=== PATIENT | male | born 1990 | race Caucasian/White ===

== ENCOUNTER 2020-02-29 05:44 | Outpatient (RCR) | payer BC ==
[~2020-02-29] VITALS: Ht 182.9 cm; Wt 122.7 kg
== END 2020-02-29 11:42 | disposition home or self-care (01) ==
LOC: PREOP 05:44
PROVIDERS: ATTEND Otolaryngology Otolaryngology/Facial Plastic Surgery
DX: Z01.818 Encounter for other preprocedural examination (principal)

== ENCOUNTER 2020-03-03 06:27 | Day surgery (SDC) | payer BC ==
[~2020-03-03] VITALS: Ht 182.9 cm; Wt 122.7 kg
[2020-03-03] VITALS (11 sets, daily range): BP systolic 122–149; BP diastolic 76–106
--- OUTSIDE RECORDS SUMMARY | 2020-03-03 06:31 | XMS REPORT | CCD ---
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 Name Role Phone PP Unavailable CCM Unavailable Summary Purpose Interface Exchange Insurance Providers Payer name Policy type / Coverage type Covered constitution party ID Effective Begin Date Effective End Date Blue Cross Blue Shield Blue Cross/Blue Shield [id number] Unknown Family History Family History data not found Social History Social History Element Codes Description Effective Dates Marital status Unknown 03/07/2016 Employment Unknown Currently employed 03/07/[address]: 182643136 Never smoker 03/07/[address]: 512436 Currently drinks alc ohol Socially 03/07/2016 Allergies, Adverse Reactions, Alerts Substance Reaction Codes Entered Date Inactivated Date Status * NO KNOWN FOOD ALLERGIES Unknown 03/07/2016 No Inactiv e Date Active * NO KNOWN DRUG ALLERGIES Unknown 03/07/2016 No Inactiv e Date Active _ Unknown 03/07/2016 No Inactive Date Active Problems Condition Codes Effective Dates Condition Status Acute suppurative otitis media of right ear ICD-9: 382 .00 ICD-10: H66.001 06/22/2019 Active FLU VACCINE ICD-9: V04.81 ICD-10: Z23 05/12/2019 Active Otitis externa in other diseases classified elsewhere, right ear ICD-9: 380.13 ICD-10: H62.41 03/31/2019 Active Unspecified nonsuppurative otitis media, right ear ICD -9: 382.9 ICD-10: H65.91 03/31/2019 Active Pain in right wrist ICD-9: 719.43 ICD-10: M25.531 08/07/2018 Active Essential (primary) hypertension ICD-9: 401.9 ICD-10: I10 10/11/2016 Active Acute tonsillitis, unspecified ICD-9: 463 ICD-10: J03.90 09/24/2016 Active Ingrowing nail ICD-9: 703.0 ICD-10: L60.0 05/30/2016 Active Elevated blood-pressure reading, without diagnosis of hypertension ICD-9: 796.2 ICD-10: R03.0 04/09/2016 Active Encounter for general adult medical examination with a bnormal findings ICD-9: V70.0 ICD-10: Z00.01 04/09/2016 Active Abnormal weight gain ICD-9: 783.1 ICD-10: R63.5 03/06/2016 Active Encounter for immunization ICD-9: V05.9 ICD-10: Z23 03/06/2016 Active Snoring ICD-9: 786.09 ICD-10: R06.83 03/06/2016 Active VACCINE FOR TDAP ICD-9: V06.1 ICD-10: Z23 03/06/2016 Active Medications Medication Codes Instructions Start Date Stop Date Status Fill Instructions Xiidra 5 % eye drops in a dropperette RxNorm: 4177770 1 Drop(s) ophthalmic (eye) two times a day 07/31/2019 08/30/2019 Active Medrol (Chris) 4 mg tablets in a dose pack RxNorm: 863055 Tablet(s) Oral as directed 06/29/2019 06/29/2019 Inactive Medrol (Chris) 4 mg tablets in a dose pack RxNorm: 792845 Tablet(s) Oral as directed 06/29/2019 06/28/2019 Inactive cefdinir 300 mg capsule RxNorm: 631277 2 Capsule(s) Oral QD 019 07/02/2019 Inactive Amoxil 500 mg tablet RxNorm: 736935 2 Tablet(s) PO BID 04/03/201912/2018 Inactive Flonase Allergy Relief 50 mcg/actuation nasal spray,suspensi on RxNorm: 2104921 2 [place] NASAL QHS 03/31/2019 No Stop Date Active prednisone 20 mg tablet RxNorm: 552653 1 Tablet(s) PO BID 03/31/2019 04/04/2019 Inactive wslidden-vgqcijjyt-aeddjbhqt 3.5 mg/mL-10,000 unit/mL- 1 % ear solution RxNorm: 256545 4 Drop(s) otic (ear) TID for 1 week 03/31/2019 06/21/2019 Inact best Celebrex 200 mg capsule RxNorm: 120706 1 Capsule(s) PO BID for pain 08/20/2018 09/18/2018 Inactive prednisone 20 mg tablet RxNorm: 448279 1 Tablet(s) PO BID 08/20/2018 08/26/2018 Inactive Keflex 500 mg capsule RxNorm: 558204 1 Capsule(s) PO QID 05/31/2016 1 08/09/2015 Inactive lisinopril 5 mg tablet RxNorm: 050024 1 Tablet(s) PO QD 04/26/2016 Inactive lisinopril 5 mg tablet RxNorm: 819038 1 Tablet(s) PO QD 03/29/2016 Inactive lisinopril 5 mg tablet RxNorm: 331203 1 Tablet(s) PO QD 03/29/2016 Inactive Multivitamin & Mineral Formula tablet RxNorm: 1 Tablet(s) PO Q D No Start Date 10/10/2016 Inactive Medication Administered No Medication Administered data Immunizations Vaccine Codes Date Status Influenza CVX: 141 05/12/2019 Complete Influenza CVX: 141 05/12/2019 Complete Tetanus, Diptheria, Pertussis CVX: 115 03/07/2016 Co mplete Results Observation Observation Code Item Item Code Result Date S [facility] Location GFR CALC 7641511 GFR Non Afr Amr >60 mL/min 04/10/2016 Un known GFR CALC 3753081 GFR Afr Amr >60 mL/min 04/10/2016 Unknow n THYROID STIMULATING HORMONE 74763 TSH 2.104 uIU/mL 04/10/2016 Unknown COMPLETE BLOOD COUNT 8087994 WBC 7.3 10e9/L 04/10/20 16 Unknown COMPLETE BLOOD COUNT 7598587 RBC 4.75 10e12/L 2015 Unknown COMPLETE BLOOD COUNT 2235420 HEMOGLOBIN 14.0 g/dL 04/10/20 16 Unknown COMPLETE BLOOD COUNT 5032586 HEMATOCRIT 41.2 % 04/10/20 16 Unknown COMPLETE BLOOD COUNT 7903843 MCV 86.7 fL 6 Unknown COMPLETE BLOOD COUNT 0963490 MCH 29.5 pg 6 Unknown COMPLETE BLOOD COUNT 0044775 MCHC 34.0 g/dL 6 Unknown COMPLETE BLOOD COUNT 6374101 PLATELET COUNT 269 10e9/L 01/2016 Unknown COMPLETE BLOOD COUNT 6692492 Mean Plt Volume 10.5 fL 01/2016 Unknown COMPLETE BLOOD COUNT 0955788 Neut Auto 60.2 % 6 Unknown COMPLETE BLOOD COUNT 7282531 Lymph Auto 26.5 % 04/10/20 16 Unknown COMPLETE BLOOD COUNT 0647472 [place] Auto 9.0 % 6 Unknown COMPLETE BLOOD COUNT 5346280 RDW 13.6 % 6 Unknown COMPLETE BLOOD COUNT 4483214 Eos Auto 4.2 % 6 Unknown COMPLETE BLOOD COUNT 4526011 Baso Auto 0.1 % 6 Unknown COMPLETE BLOOD COUNT 1023213 Neutrophil Abs 4.39 10e9/L Unknown COMPLETE BLOOD COUNT 3203305 Lymphocyte Abs 1.93 10e9/L Unknown COMPLETE BLOOD COUNT [id number] Monocyte Abs 0.66 10e9/L 01/2016 Unknown COMPLETE BLOOD COUNT 7362562 Eosinophil Abs 0.31 10e9/L Unknown COMPLETE BLOOD COUNT 7096443 RDW-SD 41.7 fL 6 Unknown COMPLETE BLOOD COUNT [id number] Basophil Abs 0.01 10e9/L 01/2016 Unknown FREE T4 74685 T4 Free 1.09 ng/dL 04/10/2016 Unknown COMPREHENSIVE METABOLIC 77696 AST 27 U/L 2015 Unknown COMPREHENSIVE METABOLIC 71076 ALT 45 U/L 2015 Unknown COMPREHENSIVE METABOLIC 88476 BUN 14 mg/dL 2015 Unknown COMPREHENSIVE METABOLIC 46418 ALBUMIN 4.7 g/dL 2015 Unknown COMPREHENSIVE METABOLIC 79569 CHLORIDE 103 mmol/L 04/10 Unknown COMPREHENSIVE METABOLIC 13481 Bili Total 0.6 mg/dL 04/10 Unknown COMPREHENSIVE METABOLIC 46275 ALK PHOS 38 U/L 2015 Unknown COMPREHENSIVE METABOLIC 07564 SODIUM 138 mmol/L 04/10 Unknown COMPREHENSIVE METABOLIC 79138 CREATININE 0.95 mg/dL 01/2016 Unknown COMPREHENSIVE METABOLIC 77131 CALCIUM 9.4 mg/dL 2015 Unknown COMPREHENSIVE METABOLIC 72982 POTASSIUM 4.5 mmol/L 04/10 Unknown COMPREHENSIVE METABOLIC 35061 Total Protein 6.9 g/dL Unknown COMPREHENSIVE METABOLIC 99720 Glucose 84 mg/dL 2015 Unknown COMPREHENSIVE METABOLIC 57428 Bicarbonate 26 mmol/L 01/2016 Unknown COMPREHENSIVE METABOLIC 78936 AGAP 9 mmol/L 2015 Unknown [facility] 92122 Cholesterol 122 mg/dL 04/10/2016 Unkno wn LIPID GROUP 28422 Triglyceride 132 mg/dL 04/10/2016 Unkn own LIPID GROUP 06083 HDL CHOLESTEROL 40 mg/dL 04/10/2016 U nknown LIPID GROUP 69750 Chol/HDL Ratio 3.05 ratio 04/10/2016 U nknown LIPID GROUP 86234 NON-HDL Chol 82 mg/dL 04/10/2016 Unkn own LIPID GROUP 27390 LDL Cholesterol 56 mg/dL 04/10/2016 U nknown Procedures Procedure Codes Date THER/PROPH/DIAG INJ SC/IM CPT-4: 01815 07/31/2019 TRIAMCINOLONE ACET INJ NOS CPT-4: J3301 07/31/2019 DEXAMETHASONE SODIUM PHOS CPT-4: J1100 07/31/2019 CEFTRIAXONE SODIUM INJECTION CPT-4: J0696 07/31/2019 THER/PROPH/DIAG INJ SC/IM CPT-4: 68623 07/31/2019 IIV4 VACC NO PRSV 6 MTHS TO 64 YRS+ IM CPT-4: 46828 05/12/2019 IMMUNIZATION ADMIN CPT-4: 77996 05/12/2019 IIV4 VACC NO PRSV 6 MTHS TO 64 YRS+ IM CPT-4: 84321 05/12/2019 STREP A ASSAY W/OPTIC CPT-4: 38215 09/24/2016 ROUTINE VENIPUNCTURE CPT-4: 73969 04/10/2016 ASSAY OF FREE THYROXINE CPT-4: 18818 04/10/2016 ASSAY THYROID STIM HORMONE CPT-4: 68740 04/10/2016 COMPREHEN METABOLIC PANEL CPT-4: 54846 04/10/2016 COMPLETE CBC W/AUTO DIFF WBC CPT-4: 93167 04/10/2016 LIPID PANEL CPT-4: 94387 04/10/2016 TDAP VACCINE 7 YRS/> IM CPT-4: 44953 03/07/2016 IMMUNIZATION ADMIN CPT-4: 76819 03/07/2016 Vital Signs Date Vital 07/31/2019 Blood Pressure 1: 128/90 Code: 8480-6 BMI: 37.4 Code: 95689-0 Heart Rate 1: 76 bpm Height: 6' Respiratory Rate: 20 bpm SpO2: 98% Tempera ture: 36.8 (C) / 98.3 (F) Weight: 276 lbs 06/22/2019 Blood Pressure 1: 122/88 Code: 8480-6 Heart Rate 1: 83 bpm SpO2: 96% Temperature: 36.6 (C) / 97.9 (F) Weight: 280 lbs 03/31/2019 Blood Pressure 1: 124 Code: 8480-6 Heart Rate 1: 72 bpm Respiratory Rate: 20 bpm SpO2: 97% Temperature: 36.8 (C) / 98.2 (F) We ight: 270 lbs 08/20/2018 Blood Pressure 1: 128/ Code: 8480-6 Heart Rate 1: 68 bpm Height: 6' Respiratory Rate: 20 bpm SpO2: 98% Temperature: 36 .9 (C) / 98.4 (F) 08/07/2018 Blood Pressure 1: 126 Code: 8480-6 BMI: 36.2 Code: 34793-2 Heart Rate 1: 72 bpm Height: 6' Respiratory Rate: 20 bpm Temperature: 36 .7 (C) / 98.0 (F) Weight: 267 lbs 10/11/2016 Blood Pressure 1: 116 Code: 8480-6 Heart Rate 1: 72 bpm Respiratory Rate: 20 bpm Temperature: 36.7 (C) / 98.1 (F) Weight: 244 lbs 09/24/2016 Blood Pressure 1: 12478 Code: 8480-6 BMI: 33.9 Code: 47520-3 Heart Rate 1: 84 bpm Height: 6' Respiratory Rate: 18 bpm SpO2: 96% Tempera ture: 36.4 (C) / 97.6 (F) Weight: 250 lbs 05/31/2016 Blood Pressure 1: 126/82 Code: 8480-6 BMI: 37.7 Code: 58214-5 Heart Rate 1: 84 bpm Height: 5'12" Respiratory Rate: 20 bpm Temperature: 36 .8 (C) / 98.2 (F) Weight: 274 lbs 04/26/2016 Blood Pressure 1: 126/82 Code: 8480-6 BMI: 37.7 Code: 94766-4 Heart Rate 1: 68 bpm Height: 5'12" Respiratory Rate: 20 bpm Temperature: 36 .6 (C) / 97.8 (F) Weight: 274 lbs 03/27/2016 Blood Pressure 1: 136/94 Code: 8480-6 He art Rate 1: 84 bpm 03/07/2016 Blood Pressure 1: 124/100 Code: 8480-6 BMI: 38.2 Code: 08007-2 Heart Rate 1: 84 bpm Height: 5'12" Respiratory Rate: 18 bpm SpO2: 97% Tempera ture: 35.8 (C) / 96.5 (F) Weight: 278 lbs Functional Status No Functional Status data Reason For Visit Reason For Visit Effective Dates Notes otalgia 07/31/2019 otalgia 06/22/2019 injection(s) 05/12/2019 otalgia 03/31/2019 follow up 08/20/2018 wrist pain 08/07/2018 follow up 10/11/2016 sore throat 09/24/2016 ingrown toenail 05/31/2016 follow up 04/26/2016 lab draw 04/10/2016 blood pressure check 03/27/2016 ~generic 03/07/2016 Establishing care- P atient is having Encounters Encounter Performer Location Codes Date ([id number]) OFFICE/OUTPATIENT VISIT EST Diagnosis: Acute suppurative otitis media of right ear[ICD10: H66.001] Laura [facility] CPT-4: 13541 07/31/2019 ([id number]) OFFICE/OUTPATIENT VISIT EST Diagnosis: Acute suppurative otitis media of right ear[ICD10: H66.001] Laura KUMARER [employer] CPT-4: 88703 06/22/2019 ([id number]) NURSE/OUTPATIENT VISIT EST Diagnosis: FLU VACCINE[ICD10: Z23] Roxi PETERSLINE [employer] YardDmitriy WELLSND ER [employer] CPT-4: 26026 05/12/2019 ([id number]) OFFICE/OUTPATIENT VISIT EST Diagnosis: Unspecified nonsuppurative otitis media, right ear[ICD10: H65.91] Diagnosis: Otitis externa in other diseases classified elsewhere, right ear[ICD10: H62.41] Roxi PETERSLINE BeckieDmitriy RUSSELLNDER [employer] CPT-4: 17962 03/31/2019 ([id number]) OFFICE/OUTPATIENT VISIT EST Diagnosis: Pain in right wrist[ICD10: M25.531] Roxi MEJIA DO [facility] CPT-4: 43021 08/20/2018 ([id number]) OFFICE/OUTPATIENT VISIT EST Diagnosis: Pain in right wrist[ICD10: M25.531] Roxi MEJIA DO [facility] CPT-4: 00791 08/07/2018 ([id number]) OFFICE/OUTPATIENT VISIT EST Diagnosis: Essential (primary) hypertension[ICD10: I10] Roxi MEJIA DO [facility] CPT-4: 12937 10/11/2016 ([id number]) OFFICE/OUTPATIENT VISIT EST Diagnosis: Acute tonsillitis, unspecified[ICD10: J03.90] Jade MEJIA DO [facility] CPT-4: 12410 09/24/2016 OFFICE/OUTPATIENT VISIT EST Diagnosis: Ingrowing nail[ICD10: L60.0] Roxi MEJIA DO [facility] CPT-4: 23803 05/31/2016 ([id number]) OFFICE/OUTPATIENT VISIT EST Diagnosis: Essential (primary) hypertension[ICD10: I10] Roxi MEJIA DO [facility] CPT-4: 76637 04/26/2016 ([id number]) OFFICE/OUTPATIENT VISIT EST Diagnosis: Encounter for general adult medical examination with abnormal findings[ICD10: Z00.01] Diagnosis: Elevated blood-pressure reading, without diagnosis of hypertension[ICD10: R03.0] Roxi MEJIA DO [facility] CPT- 4: 86033 04/10/2016 ([id number]) PREV VISIT NEW AGE 18-39 Diagnosis: Encounter for general adult medical examination with abnormal findings[ICD10: Z00.01] Diagnosis: Encounter for immunization[ICD10: Z23] Diagnosis: Elevated blood-pressure reading, without diagnosis of hypertension[ICD10: R03.0] Diagnosis: Snoring[ICD10: R06.83] Diagnosis: Abnormal weight gain[ICD10: R63.5] Diagnosis: VACCINE FOR TDAP[ICD10: Z23] Jade MEJIA DO [facility] CPT-4: 11725 03/07/2016 Plan of Care Planned Activity Notes Codes Status Date Visit Diagnosis Plan: Acute suppurative otitis media o f right ear Discussion: due to continued pain and symptoms, kenalog/dexa and rocephin given in office. instructed to call office next week if no improvement. push fluids. ICD-9 : 382.00 ICD-10 : H66.001 07/31/2019 Visit Diagnosis Plan: Acute suppurative otitis media o f right ear Discussion: cefdinir prescribed to take as directed. tylenol/ibuprofen prn pain or fever. continue with flonase daily. rtc 2 weeks for recheck of ear since this is second time. if no improvement in 2 weeks, may need injection or referral to ENT due to recurrent infection. ICD-9 : 382.00 ICD-10 : H66.001 06/22/2019 Appointment: Laura Miller [address] [place] [address] ACUTE ILLNESS 06/22/2019 Patient Education: cefdinir- [employer] Coupon [id number] https://www.[employer] Response/samplemd/resources/getResource/61/87g9i09q-44f2-180f-04 Completed 06/22/2019 Appointment: Roxi Mejia WPtel: [address] [place] [address] Immunizations 05/12/2019 Visit Plan: Supportive care. Rest, Fluid s, Tylenol/Motrin prn fever or bodyaches. Notify if worsening symptoms. 03/31/2019 Visit Diagnosis Plan: Otitis externa in other diseases classified elsewhere, right ear Discussion: Cortisporin otic drops ICD-9 : 380.13 ICD-10 : H62.41 03/31/2019 Visit Diagnosis Plan: Unspecified nonsuppurative otiti s media, right ear Discussion: Prednisone Flonase ICD-9 : 382.9 ICD-10 : H65.91 03/31/2019 Visit NOS Plan: Plan Notes: Supportive care. Rest, Fluids... 03/31/2019 Appointment: Roxi Mejia WPtel: [address] [place] [address] ACUTE ILLNESS 03/31/2019 Patient Education: prednisone- [employer] Coupon [phone] https://www.Yola.Get[employer] InfoServices/samplemd/resources/getResource/61/5177iy65-27m9-54k1-3f Completed 03/31/2019 Patient Education: ivoldclz-gqycnskoy-WB- [employer] C oupon [id number] https://www.[employer]/sampleTangent Data Services/resources/getResource/61/g5gc30n2-29eb-653v-2x Completed 03/31/2019 Visit Diagnosis Plan: Pain in right wrist Discussion: See ortho for updated x- ray/evaluation Prednisone 20mg po BID for 1 week then Celebrex 200mg po BID ICD-9 : 719.43 ICD-10 : M25.531 08/20/2018 Appointment: Roxi Mejia WPtel: [address] [place], [place] [phone] FOLLOW UP 08/20/2018 Patient Education: prednisone- [employer] Coupon [id number] https://www.[employer] Response/Yola/resources/getResource/61/pv35c709-b7x4-6p6d-fx Completed 08/20/2018 Care Plan: Referral Order SNOMED-CT : 30 [id number] Pending 08/20/2018 Visit Diagnosis Plan: Pain in right wrist Discussion: Wrist brace Aleve BID Call in 2 weeks If pain persists then will return to hand surgeon and will need updated imaging ICD-9 : 719.43 ICD-10 : M25.531 08/07/2018 Appointment: Roxi Mejia WPtel: [address] [place], [place] [id number] ACUTE ILLNESS 08/07/2018 Visit Diagnosis Plan: Essential (primary) hypertension Discussion: Stop lisinopril Continue lifestyle change BP and Pulse check in 1month ICD-9 : 401.9 ICD-10 : I10 10/11/2016 Appointment: Roxi Mejia WPtel: [address] [place], [place] [phone] 10/10 confirmed`sl FOLLOW UP 10/11/2016 Patient Education: Patient Medication Summary Completed 10/11/2016 Visit Diagnosis Plan: Acute tonsillitis, unspecified D iscussion: Rapid strep negative Discussed throat culture if symptoms persist or worsen - can call and get culture orders if needed Supportive care for now ICD-9 : 463 ICD-10 : J03.90 09/24/2016 Appointment: Jade Gamboa [address] ACUTE ILLNESS 09/24/2016 Patient Education: Patient Medication Summary Completed 09/24/2016 Visit Plan: Continue epsom salt soaks Ad d Keflex Pull edge of nailbed up as grows out If persists will need partial toenail removal 05/31/2016 Appointment: Roxi Mejia WPtel: [address] [place] [address] 05/30 lm ~sl ACUTE ILLNESS 05/31/2016 Patient Education: Patient Medication Summary Completed 05/31/2016 Visit Plan: Lab from first of month disc ussed Continue lisinopril at 5mg daily 04/26/2016 Appointment: Roxi Mejia WPtel: [address] [place] [address] [phone] confirmed-sp FOLLOW UP 04/26/2016 Patient Education: Patient Medication Summary Completed 04/26/2016 Patient Education: [facility] - Saving [employer] - Lisinopril - 18-64 - Dynamic Portal ID Completed 04/26/2016 Appointment: Roxi Mejia WPtel: [address] [place], [place] [phone] US LAB 04/10/2016 Patient Education: Patient Medication Summary Completed 04/10/2016 Appointment: Roxi Mejia WPtel: [address] [place] [address] BP CHECK 03/27/2016 Patient Education: Patient Medication Summary Completed 03/27/2016 Visit Plan: Tdap given Rechecked BP and still high 134/104 Has a cuff at home - keep daily log x 2 weeks, return for nurse BP visit with home cuff to correlate as well May need to start anti-hypertensive while he starts working on his diet, weight and exercise He is likely going to need a sleep study as well - snores, weight gain this year, fatigue, obesity and now elevated BP He will come fasting for his BP recheck with the nurse so we can update routine fasting labs - cbc, cmp, lipids, tsh, free t4 03/07/2016 Appointment: [facility] [id number] NEW PATIENT 03/07/2016 Patient Education: Patient Medication Summary Completed 03/07/2016 Referral: Kimani Medina WPtel: [facility] [address], [address] Referral Initiated Referral: Kimani Medina WPtel: [facility] [address] Referral Appointment Requested Instructions Comment . Supportive care. Rest, Fluids, Tyleno l/Motrin prn fever or bodyaches. Notify if worsening symptoms. . Continue epsom salt soaks Add Keflex Pull edge of nailbed up as grows out If persists will need partial toenail removal . Lab from first of month discussed Continue lisinopril at 5mg daily . Tdap given Rechecked BP and still high 134/104 Has a cuff at home - keep daily log x 2 weeks, return for nurse BP visit with home cuff to correlate as well May need to start anti-hypertensive while he starts working on his diet, weight and exercise He is likely going to need a sleep study as well - snores, weight gain this year, fatigue, obesity and now elevated BP He will come fasting for his BP recheck with the nurse so we can update routine fasting labs - cbc, cmp, lipids, tsh, free t4 Medical Equipment No Medical Equipment data Health Concerns Section Health Concerns data not found Goals Section Goals data not found Interventions Section Interventions data not found Health Status Evaluations/Outcomes Section Health Status Evaluations/Outcomes data not found Advance Directives No Advance Directive data
--- OUTSIDE RECORDS SUMMARY | 2020-03-03 06:31 | XMS REPORT | CCD ---
Author Author Avila Gamboa Organization [facility] Address [address] [place] [address] Phone Unavailable Care Team Providers Care Edge Sander Name Role Phone PP Unavailable CCM Unavailable Summary Purpose Interface Exchange Insurance Providers Payer name Policy type / Coverage type Covered libertarian ID Effective Begin Date Effective End Date Blue Cross Blue Shield Blue Cross/Blue Shield [id number] Unknown Family History Family History data not found Social History Social History Element Codes Description Effective Dates Marital status Unknown 03/07/2016 Employment Unknown Currently employed 03/07/[address]: 723630766 Never smoker 03/07/[address]: 007358 Currently drinks alc ohol Socially 03/07/2016 Allergies, [...] % eye drops in a dropperette RxNorm: 1773568 1 Drop(s) ophthalmic (eye) two times a day 07/31/2019 08/30/2019 Active Medrol (Chris) 4 mg tablets in a dose pack RxNorm: 725589 Tablet(s) Oral as directed 06/29/2019 06/29/2019 Inactive Medrol (Chris) 4 mg tablets in a dose pack RxNorm: 738742 Tablet(s) Oral as directed 06/29/2019 06/28/2019 Inactive cefdinir 300 mg capsule RxNorm: 551919 2 Capsule(s) Oral QD 019 07/02/2019 Inactive Amoxil 500 mg tablet RxNorm: 493750 2 Tablet(s) PO BID 04/03/201912/2018 Inactive Flonase Allergy Relief 50 mcg/actuation nasal spray,suspensi on RxNorm: 6675107 2 [place] NASAL QHS 03/31/2019 No Stop Date Active prednisone 20 mg tablet RxNorm: 286480 1 Tablet(s) PO BID 03/31/2019 04/04/2019 Inactive qsfdhrao-sdgxecmno-pvkvowrga 3.5 mg/mL-10,000 unit/mL- 1 % ear solution RxNorm: 411851 4 Drop(s) otic (ear) TID for 1 week 03/31/2019 06/21/2019 Inact best Celebrex 200 mg capsule RxNorm: 195958 1 Capsule(s) PO BID for pain 08/20/2018 09/18/2018 Inactive prednisone 20 mg tablet RxNorm: 512357 1 Tablet(s) PO BID 08/20/2018 08/26/2018 Inactive Keflex 500 mg capsule RxNorm: 557115 1 Capsule(s) PO QID 05/31/2016 1 08/09/2015 Inactive lisinopril 5 mg tablet RxNorm: 713038 1 Tablet(s) PO QD 04/26/2016 Inactive lisinopril 5 mg tablet RxNorm: 331147 1 Tablet(s) PO QD 03/29/2016 Inactive lisinopril 5 mg tablet RxNorm: 139630 1 Tablet(s) PO QD 03/29/2016 Inactive Multivitamin & Mineral Formula tablet RxNorm: 1 Tablet(s) PO Q D No Start Date 10/10/2016 Inactive Medication Administered No Medication Administered data Immunizations Vaccine Codes Date Status Influenza CVX: 141 05/12/2019 Complete Influenza CVX: 141 05/12/2019 Complete Tetanus, Diptheria, Pertussis CVX: 115 03/07/2016 Co mplete Results Observation Observation Code Item Item Code Result Date S [facility] Location GFR CALC 3656321 GFR Non Afr Amr >60 mL/min 04/10/2016 Un known GFR CALC 2757924 GFR Afr Amr >60 mL/min 04/10/2016 Unknow n THYROID STIMULATING HORMONE 84320 TSH 2.104 uIU/mL 04/10/2016 Unknown COMPLETE BLOOD COUNT 0353008 WBC 7.3 10e9/L 04/10/20 16 Unknown COMPLETE BLOOD COUNT [id number] RBC 4.75 10e12/L 2015 Unknown COMPLETE BLOOD COUNT 0469571 HEMOGLOBIN 14.0 g/dL 04/10/20 16 Unknown COMPLETE BLOOD COUNT 2092818 HEMATOCRIT 41.2 % 04/10/20 16 Unknown COMPLETE BLOOD COUNT 8746638 MCV 86.7 fL 6 Unknown COMPLETE BLOOD COUNT 6730827 MCH 29.5 pg 6 Unknown COMPLETE BLOOD COUNT 4779211 MCHC 34.0 g/dL 6 Unknown COMPLETE BLOOD COUNT 1581425 PLATELET COUNT 269 10e9/L 01/2016 Unknown COMPLETE BLOOD COUNT 1662680 Mean Plt Volume 10.5 fL 01/2016 Unknown COMPLETE BLOOD COUNT 0332160 Neut Auto 60.2 % 6 Unknown COMPLETE BLOOD COUNT [id number] Lymph Auto 26.5 % 04/10/20 16 Unknown COMPLETE BLOOD COUNT 8508591 Bennett Auto 9.0 % 6 Unknown COMPLETE BLOOD COUNT 3520872 RDW 13.6 % 6 Unknown COMPLETE BLOOD COUNT 7003233 Eos Auto 4.2 % 6 Unknown COMPLETE BLOOD COUNT 6866793 Baso Auto 0.1 % 6 Unknown COMPLETE BLOOD COUNT 7897184 Neutrophil Abs 4.39 10e9/L Unknown COMPLETE BLOOD COUNT 9960082 Lymphocyte Abs 1.93 10e9/L Unknown COMPLETE BLOOD COUNT 9352487 Monocyte Abs 0.66 10e9/L 01/2016 Unknown COMPLETE BLOOD COUNT 2545942 Eosinophil Abs 0.31 10e9/L Unknown COMPLETE BLOOD COUNT 3944530 RDW-SD 41.7 fL 6 Unknown COMPLETE BLOOD COUNT [id number] Basophil Abs 0.01 10e9/L 01/2016 Unknown FREE T4 07068 T4 Free 1.09 ng/dL 04/10/2016 Unknown COMPREHENSIVE METABOLIC 80684 AST 27 U/L 2015 Unknown COMPREHENSIVE METABOLIC 63493 ALT 45 U/L 2015 Unknown COMPREHENSIVE METABOLIC 73983 BUN 14 mg/dL 2015 Unknown COMPREHENSIVE METABOLIC 60469 ALBUMIN 4.7 g/dL 2015 Unknown COMPREHENSIVE METABOLIC 27598 CHLORIDE 103 mmol/L 04/10 Unknown COMPREHENSIVE METABOLIC 42455 Bili Total 0.6 mg/dL 04/10 Unknown COMPREHENSIVE METABOLIC 19205 ALK PHOS 38 U/L 2015 Unknown COMPREHENSIVE METABOLIC 59997 SODIUM 138 mmol/L 04/10 Unknown COMPREHENSIVE METABOLIC 69942 CREATININE 0.95 mg/dL 01/2016 Unknown COMPREHENSIVE METABOLIC 85716 CALCIUM 9.4 mg/dL 2015 Unknown COMPREHENSIVE METABOLIC 25545 POTASSIUM 4.5 mmol/L 04/10 Unknown COMPREHENSIVE METABOLIC 99964 Total Protein 6.9 g/dL Unknown COMPREHENSIVE METABOLIC 83010 Glucose 84 mg/dL 2015 Unknown COMPREHENSIVE METABOLIC 98613 Bicarbonate 26 mmol/L 01/2016 Unknown COMPREHENSIVE METABOLIC 66174 AGAP 9 mmol/L 2015 Unknown [facility] 42924 Cholesterol 122 mg/dL 04/10/2016 Unkno wn LIPID GROUP 32764 Triglyceride 132 mg/dL 04/10/2016 Unkn own L[facility] GROUP 75505 HDL CHOLESTEROL 40 mg/dL 04/10/2016 U nknown L[facility] GROUP 11436 Chol/HDL Ratio 3.05 ratio 04/10/2016 U nknown LIPID GROUP 62371 NON-HDL Chol 82 mg/dL 04/10/2016 Unkn own L[facility] GROUP 10554 LDL Cholesterol 56 mg/dL 04/10/2016 U nknown Procedures Procedure Codes Date THER/PROPH/DIAG INJ SC/IM CPT-4: 11850 07/31/2019 TRIAMCINOLONE ACET INJ NOS CPT-4: J3301 07/31/2019 DEXAMETHASONE SODIUM PHOS CPT-4: J1100 07/31/2019 CEFTRIAXONE SODIUM INJECTION CPT-4: J0696 07/31/2019 THER/PROPH/DIAG INJ SC/IM CPT-4: 66904 07/31/2019 IIV4 VACC NO PRSV 6 MTHS TO 64 YRS+ IM CPT-4: 21512 05/12/2019 IMMUNIZATION ADMIN CPT-4: 89009 05/12/2019 IIV4 VACC NO PRSV 6 MTHS TO 64 YRS+ IM CPT-4: 87036 05/12/2019 STREP A ASSAY W/OPTIC CPT-4: 28164 09/24/2016 ROUTINE VENIPUNCTURE CPT-4: 92264 04/10/2016 ASSAY OF FREE THYROXINE CPT-4: 58610 04/10/2016 ASSAY THYROID STIM HORMONE CPT-4: 93880 04/10/2016 COMPREHEN METABOLIC PANEL CPT-4: 35517 04/10/2016 COMPLETE CBC W/AUTO DIFF WBC CPT-4: 41081 04/10/2016 LIPID PANEL CPT-4: 00248 04/10/2016 TDAP VACCINE 7 YRS/> IM CPT-4: 83439 03/07/2016 IMMUNIZATION ADMIN CPT-4: 97285 03/07/2016 Vital Signs Date Vital 07/31/2019 Blood Pressure 1: 128/90 Code: 8480-6 BMI: 37.4 Code: 93774-1 Heart Rate 1: 76 bpm Height: 6' [...] 1: 126 Code: 8480-6 BMI: 36.2 Code: 53920-5 Heart Rate 1: 72 bpm Height: 6' Respiratory Rate: 20 bpm Temperature: 36 .7 (C) / 98.0 (F) Weight: 267 lbs 10/11/2016 Blood Pressure 1: 116 Code: 8480-6 Heart Rate 1: 72 bpm Respiratory Rate: 20 bpm Temperature: 36.7 (C) / 98.1 (F) Weight: 244 lbs 09/24/2016 Blood Pressure 1: 12478 Code: 8480-6 BMI: 33.9 Code: 22064-1 Heart Rate 1: 84 bpm Height: 6' Respiratory Rate: 18 bpm SpO2: 96% Tempera ture: 36.4 (C) / 97.6 (F) Weight: 250 lbs 05/31/2016 Blood Pressure 1: 126/82 Code: 8480-6 BMI: 37.7 Code: 05034-5 Heart Rate 1: 84 bpm Height: 5'12" Respiratory Rate: 20 bpm Temperature: 36 .8 (C) / 98.2 (F) Weight: 274 lbs 04/26/2016 Blood Pressure 1: 126/82 Code: 8480-6 BMI: 37.7 Code: 52216-5 Heart Rate 1: 68 bpm Height: 5'12" Respiratory Rate: 20 bpm Temperature: 36 .6 (C) / 97.8 (F) Weight: 274 lbs 03/27/2016 Blood Pressure 1: 136/94 Code: 8480-6 He art Rate 1: 84 bpm 03/07/2016 Blood Pressure 1: 124/100 Code: 8480-6 BMI: 38.2 Code: 55800-9 Heart Rate 1: 84 bpm Height: 5'12" [...] having Encounters Encounter Performer Location Codes Date (20840) OFFICE/OUTPATIENT VISIT EST Diagnosis: Acute suppurative otitis media of right ear[ICD10: H66.001] Laura KUMARdeltamethod CPT-4: 66393 07/31/2019 ([id number]) OFFICE/OUTPATIENT VISIT EST Diagnosis: Acute suppurative otitis media of right ear[ICD10: H66.001] Laura KUMARER [facility] CPT-4: 66148 06/22/2019 ([id number]) NURSE/OUTPATIENT VISIT EST Diagnosis: FLU VACCINE[ICD10: Z23] Roxi PETERSLINE Box JumpDmitriy WELLSND ER [facility] CPT-4: 71925 05/12/2019 ([id number]) OFFICE/OUTPATIENT VISIT EST Diagnosis: Unspecified nonsuppurative otitis media, right ear[ICD10: H65.91] Diagnosis: Otitis externa in other diseases classified elsewhere, right ear[ICD10: H62.41] Roxi PETERSLINE BeckieDmitriy RUSSELLNDER [facility] CPT-4: 67517 03/31/2019 ([id number]) OFFICE/OUTPATIENT VISIT EST Diagnosis: Pain in right wrist[ICD10: M25.531] Roxi MEJIA DO [facility] CPT-4: 15975 08/20/2018 ([id number]) OFFICE/OUTPATIENT VISIT EST Diagnosis: Pain in right wrist[ICD10: M25.531] Roxi MEJIA DO [facility] CPT-4: 07884 08/07/2018 ([id number]) OFFICE/OUTPATIENT VISIT EST Diagnosis: Essential (primary) hypertension[ICD10: I10] Roxi MEJIA DO [facility] CPT-4: 41432 10/11/2016 ([id number]) OFFICE/OUTPATIENT VISIT EST Diagnosis: Acute tonsillitis, unspecified[ICD10: J03.90] Jade MEJIA DO [facility] CPT-4: 23564 09/24/2016 OFFICE/OUTPATIENT VISIT EST Diagnosis: Ingrowing nail[ICD10: L60.0] Roxi MEJIA DO [facility] CPT-4: 81756 05/31/2016 ([id number]) OFFICE/OUTPATIENT VISIT EST Diagnosis: Essential (primary) hypertension[ICD10: I10] Roxi MEJIA DO [facility] CPT-4: 05657 04/26/2016 ([id number]) OFFICE/OUTPATIENT VISIT EST Diagnosis: Encounter for general adult medical examination with abnormal findings[ICD10: Z00.01] Diagnosis: Elevated blood-pressure reading, without diagnosis of hypertension[ICD10: R03.0] Roxi MEJIA DO [facility] CPT- 4: 67593 04/10/2016 ([id number]) PREV VISIT NEW AGE 18-39 Diagnosis: Encounter for general adult medical examination with abnormal findings[ICD10: Z00.01] Diagnosis: Encounter for immunization[ICD10: Z23] Diagnosis: Elevated blood-pressure reading, without diagnosis of hypertension[ICD10: R03.0] Diagnosis: Snoring[ICD10: R06.83] Diagnosis: Abnormal weight gain[ICD10: R63.5] Diagnosis: VACCINE FOR TDAP[ICD10: Z23] Jade MEJIA DO [facility] CPT-4: 58009 03/07/2016 Plan of Care Planned Activity Notes [...] ICD-10 : H66.001 06/22/2019 Appointment: Laura Miller [address] [place] [address] ACUTE ILLNESS 06/22/2019 Patient Education: cefdinir- [employer] Coupon [id number] [email or web address]://www.[employer]/samplemd/resources/getResource/61/[email or web address] Completed 06/22/2019 Appointment: Roxi Mejia WPtel: [address] [place] [address] Immunizations 05/12/2019 Visit Plan: Supportive care. Rest, [...] Rest, Fluids... 03/31/2019 Appointment: Roxi Mejia WPtel: [address] [place] [address] ACUTE ILLNESS 03/31/2019 Patient Education: prednisone- [employer] Coupon [phone] https://www.[employer]/samplemd/resources/getResource/61/[email or web address] Completed 03/31/2019 Patient Education: gnhdpwhf-ohqbxmycw-CW- [employer] C oupon [id number] https://www.[employer]/sampleManta [employer]/resources/getResource/61/c9ew62i3-05tk-253a-[email or web address] Completed 03/31/2019 Visit Diagnosis Plan: Pain in right wrist Discussion: See ortho for updated x- ray/evaluation Prednisone 20mg po BID for 1 week then Celebrex 200mg po BID ICD-9 : 719.43 ICD-10 : M25.531 08/20/2018 Appointment: Roxi Mejia WPtel: [address] [place], [place] [phone] FOLLOW UP 08/20/2018 Patient Education: prednisone- [employer] Coupon [phone] https://www.[employer]/resources/getResource/61/[email or web address]-[email or web address] Completed 08/20/2018 Care Plan: Referral Order SNOMED-CT : 30 1649167 Pending 08/20/2018 Visit Diagnosis Plan: Pain in right wrist Discussion: Wrist brace Aleve BID Call in 2 weeks If pain persists then will return to hand surgeon and will need updated imaging ICD-9 : 719.43 ICD-10 : M25.531 08/07/2018 Appointment: Roxi Mejia WPtel: [address] [place], [place] [phone] ACUTE ILLNESS 08/07/2018 Visit Diagnosis Plan: Essential (primary) hypertension Discussion: Stop lisinopril Continue lifestyle change BP and Pulse check in 1month ICD-9 : 401.9 ICD-10 : I10 10/11/2016 Appointment: Roxi Mejia WPtel: [address] [place], [place] [phone] 10/10 confirmed`sl FOLLOW UP 10/11/2016 Patient Education: Patient Medication Summary Completed 10/11/2016 Visit Diagnosis Plan: Acute tonsillitis, unspecified D iscussion: Rapid strep negative Discussed throat culture if symptoms persist or worsen - can call and get culture orders if needed Supportive care for now ICD-9 : 463 ICD-10 : J03.90 09/24/2016 Appointment: Jade Gamboa [address] ACUTE ILLNESS 09/24/2016 Patient Education: Patient Medication Summary Completed 09/24/2016 Visit Plan: Continue epsom salt soaks Ad d Keflex Pull edge of nailbed up as grows out If persists will need partial toenail removal 05/31/2016 Appointment: Roxi Mejia WPtel: [address] [place] [address] 05/30 lm ~sl ACUTE ILLNESS 05/31/2016 Patient Education: Patient Medication Summary Completed 05/31/2016 Visit Plan: Lab from first of month disc ussed Continue lisinopril at 5mg daily 04/26/2016 Appointment: Roxi Mejia WPtel: [address] [place] [address] [phone] confirmed-sp FOLLOW UP 04/26/2016 Patient Education: Patient Medication Summary Completed 04/26/2016 Patient Education: [facility] - Saving [employer] - Lisinopril - 18-64 - Dynamic Portal ID Completed 04/26/2016 Appointment: Roxi Mejia WPtel: [address] [place], [place] [phone] US LAB 04/10/2016 Patient Education: Patient Medication Summary Completed 04/10/2016 Appointment: Roxi Mejia WPtel: [address] [place] [address] BP CHECK 03/27/2016 Patient Education: Patient Medication [...] tsh, free t4 03/07/2016 [facility]ment: [facility] Gamb[id number] [id number] NEW PATIENT 03/07/2016 Patient Education: Patient Medication Summary Completed 03/07/2016 Referral: Kimani Medina WPtel: [facility] [address], [address] Referral Initiated Referral: Kimani Medina WPtel: [facility] [address] Referral Appointment Requested Instructions Comment . [...]
--- OUTSIDE RECORDS SUMMARY | 2020-03-03 06:31 | XMS REPORT | CCD ---
Author Author Avila Gamboa Organization [facility] Address [address] [place] [address] Phone Unavailable Care Team Providers Care Chemical Laboratory Scientist Name Role Phone PP Unavailable CCM Unavailable Summary Purpose Interface Exchange Insurance Providers Payer name Policy type / Coverage type Covered democrat ID Effective Begin Date Effective End Date Blue Cross Blue Shield Blue Cross/Blue Shield [id number] Unknown Family History Family History data not found Social History Social History Element Codes Description Effective Dates Marital status Unknown 03/07/2016 Employment Unknown Currently employed 03/07/[address]: 295514558 Never smoker 03/07/[address]: 393246 Currently drinks alc ohol Socially 03/07/2016 Allergies, [...] % eye drops in a dropperette RxNorm: 6655140 1 Drop(s) ophthalmic (eye) two times a day 07/31/2019 08/30/2019 Active Medrol (Chris) 4 mg tablets in a dose pack RxNorm: 251443 Tablet(s) Oral as directed 06/29/2019 06/29/2019 Inactive Medrol (Chris) 4 mg tablets in a dose pack RxNorm: 215812 Tablet(s) Oral as directed 06/29/2019 06/28/2019 Inactive cefdinir 300 mg capsule RxNorm: 390687 2 Capsule(s) Oral QD 019 07/02/2019 Inactive Amoxil 500 mg tablet RxNorm: 625369 2 Tablet(s) PO BID 04/03/201912/2018 Inactive Flonase Allergy Relief 50 mcg/actuation nasal spray,suspensi on RxNorm: 1418800 2 [place] NASAL QHS 03/31/2019 No Stop Date Active prednisone 20 mg tablet RxNorm: 572738 1 Tablet(s) PO BID 03/31/2019 04/04/2019 Inactive fqfdcyjt-enfbaemka-cubnowzdh 3.5 mg/mL-10,000 unit/mL- 1 % ear solution RxNorm: 298997 4 Drop(s) otic (ear) TID for 1 week 03/31/2019 06/21/2019 Inact best Celebrex 200 mg capsule RxNorm: 107062 1 Capsule(s) PO BID for pain 08/20/2018 09/18/2018 Inactive prednisone 20 mg tablet RxNorm: 375624 1 Tablet(s) PO BID 08/20/2018 08/26/2018 Inactive Keflex 500 mg capsule RxNorm: 858082 1 Capsule(s) PO QID 05/31/2016 1 08/09/2015 Inactive lisinopril 5 mg tablet RxNorm: 166702 1 Tablet(s) PO QD 04/26/2016 Inactive lisinopril 5 mg tablet RxNorm: 571608 1 Tablet(s) PO QD 03/29/2016 Inactive lisinopril 5 mg tablet RxNorm: 226067 1 Tablet(s) PO QD 03/29/2016 Inactive Multivitamin & Mineral Formula tablet RxNorm: 1 Tablet(s) PO Q D No Start Date 10/10/2016 Inactive Medication Administered No Medication Administered data Immunizations Vaccine Codes Date Status Influenza CVX: 141 05/12/2019 Complete Influenza CVX: 141 05/12/2019 Complete Tetanus, Diptheria, Pertussis CVX: 115 03/07/2016 Co mplete Results Observation Observation Code Item Item Code Result Date [facility] GFR CALC 6775205 GFR Non Afr Amr >60 mL/min 04/10/2016 Un known GFR CALC 2153685 GFR Afr Amr >60 mL/min 04/10/2016 Unknow n THYROID STIMULATING HORMONE 40210 TSH 2.104 uIU/mL 04/10/2016 Unknown COMPLETE BLOOD COUNT 7311051 WBC 7.3 10e9/L 04/10/20 16 Unknown COMPLETE BLOOD COUNT 1899944 RBC 4.75 10e12/L 2015 Unknown COMPLETE BLOOD COUNT 2149212 HEMOGLOBIN 14.0 g/dL 04/10/20 16 Unknown COMPLETE BLOOD COUNT 7359561 HEMATOCRIT 41.2 % 04/10/20 16 Unknown COMPLETE BLOOD COUNT 9478324 MCV 86.7 fL 6 Unknown COMPLETE BLOOD COUNT 7284847 MCH 29.5 pg 6 Unknown COMPLETE BLOOD COUNT 0341988 MCHC 34.0 g/dL 6 Unknown COMPLETE BLOOD COUNT 2026774 PLATELET COUNT 269 10e9/L 01/2016 Unknown COMPLETE BLOOD COUNT 1832428 Mean Plt Volume 10.5 fL 01/2016 Unknown COMPLETE BLOOD COUNT 8948261 Neut Auto 60.2 % 6 Unknown COMPLETE BLOOD COUNT 3893079 Lymph Auto 26.5 % 04/10/20 16 Unknown COMPLETE BLOOD COUNT 4466818 Barry Auto 9.0 % 6 Unknown COMPLETE BLOOD COUNT 9936264 RDW 13.6 % 6 Unknown COMPLETE BLOOD COUNT 0321850 Eos Auto 4.2 % 6 Unknown COMPLETE BLOOD COUNT 5861557 Baso Auto 0.1 % 6 Unknown COMPLETE BLOOD COUNT 2758232 Neutrophil Abs 4.39 10e9/L Unknown COMPLETE BLOOD COUNT 0111861 Lymphocyte Abs 1.93 10e9/L Unknown COMPLETE BLOOD COUNT 0112578 Monocyte Abs 0.66 10e9/L 01/2016 Unknown COMPLETE BLOOD COUNT 0138103 Eosinophil Abs 0.31 10e9/L Unknown COMPLETE BLOOD COUNT 4807144 RDW-SD 41.7 fL 6 Unknown COMPLETE BLOOD COUNT [id number] Basophil Abs 0.01 10e9/L 01/2016 Unknown FREE T4 53233 T4 Free 1.09 ng/dL 04/10/2016 Unknown COMPREHENSIVE METABOLIC 46949 AST 27 U/L 2015 Unknown COMPREHENSIVE METABOLIC 34622 ALT 45 U/L 2015 Unknown COMPREHENSIVE METABOLIC 36677 BUN 14 mg/dL 2015 Unknown COMPREHENSIVE METABOLIC 83239 ALBUMIN 4.7 g/dL 2015 Unknown COMPREHENSIVE METABOLIC 89026 CHLORIDE 103 mmol/L 04/10 Unknown COMPREHENSIVE METABOLIC 03999 Bili Total 0.6 mg/dL 04/10 Unknown COMPREHENSIVE METABOLIC 24262 ALK PHOS 38 U/L 2015 Unknown COMPREHENSIVE METABOLIC 28385 SODIUM 138 mmol/L 04/10 Unknown COMPREHENSIVE METABOLIC 24679 CREATININE 0.95 mg/dL 01/2016 Unknown COMPREHENSIVE METABOLIC 22018 CALCIUM 9.4 mg/dL 2015 Unknown COMPREHENSIVE METABOLIC 11511 POTASSIUM 4.5 mmol/L 04/10 Unknown COMPREHENSIVE METABOLIC 48180 Total Protein 6.9 g/dL Unknown COMPREHENSIVE METABOLIC 03662 Glucose 84 mg/dL 2015 Unknown COMPREHENSIVE METABOLIC 17262 Bicarbonate 26 mmol/L 01/2016 Unknown COMPREHENSIVE METABOLIC 00832 AGAP 9 mmol/L 2015 Unknown [facility] 37307 Cholesterol 122 mg/dL 04/10/2016 Unkno wn LIPID GROUP 13247 Triglyceride 132 mg/dL 04/10/2016 Unkn own L[facility] GROUP 50564 HDL CHOLESTEROL 40 mg/dL 04/10/2016 U nknown LIP[facility] GROUP 93995 Chol/HDL Ratio 3.05 ratio 04/10/2016 U nknown LIPID GROUP 57655 NON-HDL Chol 82 mg/dL 04/10/2016 Unkn own LIPID GROUP 26186 LDL Cholesterol 56 mg/dL 04/10/2016 U nknown Procedures Procedure Codes Date THER/PROPH/DIAG INJ SC/IM CPT-4: 76470 07/31/2019 TRIAMCINOLONE ACET INJ NOS CPT-4: J3301 07/31/2019 DEXAMETHASONE SODIUM PHOS CPT-4: J1100 07/31/2019 CEFTRIAXONE SODIUM INJECTION CPT-4: J0696 07/31/2019 THER/PROPH/DIAG INJ SC/IM CPT-4: 32271 07/31/2019 IIV4 VACC NO PRSV 6 MTHS TO 64 YRS+ IM CPT-4: 54797 05/12/2019 IMMUNIZATION ADMIN CPT-4: 70293 05/12/2019 IIV4 VACC NO PRSV 6 MTHS TO 64 YRS+ IM CPT-4: 16868 05/12/2019 STREP A ASSAY W/OPTIC CPT-4: 87332 09/24/2016 ROUTINE VENIPUNCTURE CPT-4: 58079 04/10/2016 ASSAY OF FREE THYROXINE CPT-4: 06658 04/10/2016 ASSAY THYROID STIM HORMONE CPT-4: 37441 04/10/2016 COMPREHEN METABOLIC PANEL CPT-4: 26201 04/10/2016 COMPLETE CBC W/AUTO DIFF WBC CPT-4: 33049 04/10/2016 LIPID PANEL CPT-4: 93547 04/10/2016 TDAP VACCINE 7 YRS/> IM CPT-4: 94715 03/07/2016 IMMUNIZATION ADMIN CPT-4: 42264 03/07/2016 Vital Signs Date Vital 07/31/2019 Blood Pressure 1: 128/90 Code: 8480-6 BMI: 37.4 Code: 39852-0 Heart Rate 1: 76 bpm Height: 6' [...] 1: 126 Code: 8480-6 BMI: 36.2 Code: 40225-2 Heart Rate 1: 72 bpm Height: 6' Respiratory Rate: 20 bpm Temperature: 36 .7 (C) / 98.0 (F) Weight: 267 lbs 10/11/2016 Blood Pressure 1: 116 Code: 8480-6 Heart Rate 1: 72 bpm Respiratory Rate: 20 bpm Temperature: 36.7 (C) / 98.1 (F) Weight: 244 lbs 09/24/2016 Blood Pressure 1: 12478 Code: 8480-6 BMI: 33.9 Code: 72067-2 Heart Rate 1: 84 bpm Height: 6' Respiratory Rate: 18 bpm SpO2: 96% Tempera ture: 36.4 (C) / 97.6 (F) Weight: 250 lbs 05/31/2016 Blood Pressure 1: 126/82 Code: 8480-6 BMI: 37.7 Code: 84272-9 Heart Rate 1: 84 bpm Height: 5'12" Respiratory Rate: 20 bpm Temperature: 36 .8 (C) / 98.2 (F) Weight: 274 lbs 04/26/2016 Blood Pressure 1: 126/82 Code: 8480-6 BMI: 37.7 Code: 25602-1 Heart Rate 1: 68 bpm Height: 5'12" Respiratory Rate: 20 bpm Temperature: 36 .6 (C) / 97.8 (F) Weight: 274 lbs 03/27/2016 Blood Pressure 1: 136/94 Code: 8480-6 He art Rate 1: 84 bpm 03/07/2016 Blood Pressure 1: 124/100 Code: 8480-6 BMI: 38.2 Code: 68280-5 Heart Rate 1: 84 bpm Height: 5'12" [...] having Encounters Encounter Performer Location Codes Date (85202) OFFICE/OUTPATIENT VISIT EST Diagnosis: Acute suppurative otitis media of right ear[ICD10: H66.001] Laura KUMAR[facility] CPT-4: 96288 07/31/2019 ([id number]) OFFICE/OUTPATIENT VISIT EST Diagnosis: Acute suppurative otitis media of right ear[ICD10: H66.001] Laura KUMARER [facility] CPT-4: 92823 06/22/2019 ([id number]) NURSE/OUTPATIENT VISIT EST Diagnosis: FLU VACCINE[ICD10: Z23] Roxi PETERSLINE [employer] WELLSND ER [facility] CPT-4: 09963 05/12/2019 ([id number]) OFFICE/OUTPATIENT VISIT EST Diagnosis: Unspecified nonsuppurative otitis media, right ear[ICD10: H65.91] Diagnosis: Otitis externa in other diseases classified elsewhere, right ear[ICD10: H62.41] Roxi PETERSLINE BeckieDmitriy RUSSELLNDER [facility] CPT-4: 99473 03/31/2019 ([id number]) OFFICE/OUTPATIENT VISIT EST Diagnosis: Pain in right wrist[ICD10: M25.531] Roxi MEJIA DO [facility] CPT-4: 82974 08/20/2018 ([id number]) OFFICE/OUTPATIENT VISIT EST Diagnosis: Pain in right wrist[ICD10: M25.531] Roxi MEJIA DO [facility] CPT-4: 35707 08/07/2018 ([id number]) OFFICE/OUTPATIENT VISIT EST Diagnosis: Essential (primary) hypertension[ICD10: I10] Roxi MEJIA DO [facility] CPT-4: 45600 10/11/2016 ([id number]) OFFICE/OUTPATIENT VISIT EST Diagnosis: Acute tonsillitis, unspecified[ICD10: J03.90] Jade MEJIA DO [facility] CPT-4: 56753 09/24/2016 OFFICE/OUTPATIENT VISIT EST Diagnosis: Ingrowing nail[ICD10: L60.0] Roxi MEJIA DO [facility] CPT-4: 83073 05/31/2016 ([id number]) OFFICE/OUTPATIENT VISIT EST Diagnosis: Essential (primary) hypertension[ICD10: I10] Roxi MEJIA DO [facility] CPT-4: 99969 04/26/2016 ([id number]) OFFICE/OUTPATIENT VISIT EST Diagnosis: Encounter for general adult medical examination with abnormal findings[ICD10: Z00.01] Diagnosis: Elevated blood-pressure reading, without diagnosis of hypertension[ICD10: R03.0] Roxi MEJIA DO [facility] CPT- 4: 09681 04/10/2016 ([id number]) PREV VISIT NEW AGE 18-39 Diagnosis: Encounter for general adult medical examination with abnormal findings[ICD10: Z00.01] Diagnosis: Encounter for immunization[ICD10: Z23] Diagnosis: Elevated blood-pressure reading, without diagnosis of hypertension[ICD10: R03.0] Diagnosis: Snoring[ICD10: R06.83] Diagnosis: Abnormal weight gain[ICD10: R63.5] Diagnosis: VACCINE FOR TDAP[ICD10: Z23] Jade MEJIA DO [facility] CPT-4: 81018 03/07/2016 Plan of Care Planned Activity Notes [...] ICD-10 : H66.001 06/22/2019 Appointment: Laura Miller [address] [place] [address] ACUTE ILLNESS 06/22/2019 Patient Education: cefdinir- [employer] Coupon [id number] [phone] https://www.[employer]/samplemd/resources/getResource/61/77y5i06b-49d6-329h-93 Completed 06/22/2019 Appointment: Roxi Mejia WPtel: [address] [place] [address] Immunizations 05/12/2019 Visit Plan: Supportive care. Rest, [...] Rest, Fluids... 03/31/2019 Appointment: Roxi Mejia WPtel: [address] [place] [address] ACUTE ILLNESS 03/31/2019 Patient Education: prednisone- [employer] Coupon [phone] https://www.[employer]/samplemd/resources/getResource/61/5856fg28-57d3-92j1-1o Completed 03/31/2019 Patient Education: ndpivzkp-ihqdskaes-HY- [employer] C oupon [id number] https://www.[employer]/sampleMODLOFT/resources/getResource/61/y5mx10m3-74py-129x-8h Completed 03/31/2019 Visit Diagnosis Plan: Pain in right wrist Discussion: See ortho for updated x- ray/evaluation Prednisone 20mg po BID for 1 week then Celebrex 200mg po BID ICD-9 : 719.43 ICD-10 : M25.531 08/20/2018 Appointment: Roxi Mejia WPtel: [address] [place], [place] [phone] FOLLOW UP 08/20/2018 Patient Education: prednisone- [employer] Coupon [phone] https://www.[employer]/resources/getResource/61/oc08i099-v9a1-4o9z-yi Completed 08/20/2018 Care Plan: Referral Order SNOMED-CT : 30 9066831 Pending 08/20/2018 Visit Diagnosis Plan: Pain in right wrist Discussion: Wrist brace Aleve BID Call in 2 weeks If pain persists then will return to hand surgeon and will need updated imaging ICD-9 : 719.43 ICD-10 : M25.531 08/07/2018 Appointment: Roxi Mejia WPtel: [address] [place], [place] [phone] ACUTE ILLNESS 08/07/2018 Visit Diagnosis Plan: Essential (primary) hypertension Discussion: Stop lisinopril Continue lifestyle change BP and Pulse check in 1month ICD-9 : 401.9 ICD-10 : I10 10/11/2016 Appointment: Roxi Mejia WPtel: [address] [place], [place] [phone] 10/10 confirmed`sl FOLLOW UP 10/11/2016 Patient Education: Patient Medication Summary Completed 10/11/2016 Visit Diagnosis Plan: Acute tonsillitis, unspecified D iscussion: Rapid strep negative Discussed throat culture if symptoms persist or worsen - can call and get culture orders if needed Supportive care for now ICD-9 : 463 ICD-10 : J03.90 09/24/2016 Appointment: Jade Gamboa [address] ACUTE ILLNESS 09/24/2016 Patient Education: Patient Medication Summary Completed 09/24/2016 Visit Plan: Continue epsom salt soaks Ad d Keflex Pull edge of nailbed up as grows out If persists will need partial toenail removal 05/31/2016 Appointment: Roxi Mejia WPtel: [address] [place] [address] 05/30 lm ~sl ACUTE ILLNESS 05/31/2016 Patient Education: Patient Medication Summary Completed 05/31/2016 Visit Plan: Lab from first of month disc ussed Continue lisinopril at 5mg daily 04/26/2016 Appointment: Roxi Mejia WPtel: [address] [place] [address] [phone] confirmed-sp FOLLOW UP 04/26/2016 Patient Education: Patient Medication Summary Completed 04/26/2016 Patient Education: [facility] [place] 2] - Saving AutoInj - Lisinopril - 18-64 - Dynamic Portal ID Completed 04/26/2016 Appointment: Roxi Mejia WPtel: [address] [place], [place] [phone] US LAB 04/10/2016 Patient Education: Patient Medication Summary Completed 04/10/2016 Appointment: Roxi Mejia WPtel: [address] [place] [address] BP CHECK 03/27/2016 Patient Education: Patient Medication [...] tsh, free t4 03/07/2016 [facility] [id number] NEW PATIENT 03/07/2016 Patient Education: Patient Medication Summary Completed 03/07/2016 Referral: Kimani Medina WPtel: [facility] [address], [address] Referral Initiated Referral: Kimani Medina WPtel: [facility] [address] Referral Appointment Requested Instructions Comment . [...]
--- OUTSIDE RECORDS SUMMARY | 2020-03-03 06:31 | XMS REPORT | CCD ---
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 Name Role Phone PP Unavailable CCM Unavailable Summary Purpose Interface Exchange Insurance Providers Payer name Policy type / Coverage type Covered constitution party ID Effective Begin Date Effective End Date Blue Cross Blue Shield Blue Cross/Blue Shield [id number] Unknown Family History Family History data not found Social History Social History Element Codes Description Effective Dates Marital status Unknown 03/07/2016 Employment Unknown Currently employed 03/07/[address]: 252880640 Never smoker 03/07/[address]: 814386 Currently drinks alc ohol Socially 03/07/2016 Allergies, [...] % eye drops in a dropperette RxNorm: 7694561 1 Drop(s) ophthalmic (eye) two times a day 07/31/2019 08/30/2019 Active Medrol (Chris) 4 mg tablets in a dose pack RxNorm: 568348 Tablet(s) Oral as directed 06/29/2019 06/29/2019 Inactive Medrol (Chris) 4 mg tablets in a dose pack RxNorm: 055519 Tablet(s) Oral as directed 06/29/2019 06/28/2019 Inactive cefdinir 300 mg capsule RxNorm: 226208 2 Capsule(s) Oral QD 019 07/02/2019 Inactive Amoxil 500 mg tablet RxNorm: 410707 2 Tablet(s) PO BID 04/03/201912/2018 Inactive Flonase Allergy Relief 50 mcg/actuation nasal spray,suspensi on RxNorm: 7244422 2 [place] NASAL QHS 03/31/2019 No Stop Date Active prednisone 20 mg tablet RxNorm: 056583 1 Tablet(s) PO BID 03/31/2019 04/04/2019 Inactive ujjuwoos-hcoultynj-dpcnnvplv 3.5 mg/mL-10,000 unit/mL- 1 % ear solution RxNorm: 284681 4 Drop(s) otic (ear) TID for 1 week 03/31/2019 06/21/2019 Inact best Celebrex 200 mg capsule RxNorm: 630318 1 Capsule(s) PO BID for pain 08/20/2018 09/18/2018 Inactive prednisone 20 mg tablet RxNorm: 184965 1 Tablet(s) PO BID 08/20/2018 08/26/2018 Inactive Keflex 500 mg capsule RxNorm: 069052 1 Capsule(s) PO QID 05/31/2016 1 08/09/2015 Inactive lisinopril 5 mg tablet RxNorm: 747791 1 Tablet(s) PO QD 04/26/2016 Inactive lisinopril 5 mg tablet RxNorm: 936308 1 Tablet(s) PO QD 03/29/2016 Inactive lisinopril 5 mg tablet RxNorm: 089648 1 Tablet(s) PO QD 03/29/2016 Inactive Multivitamin & Mineral Formula tablet RxNorm: 1 Tablet(s) PO Q D No Start Date 10/10/2016 Inactive Medication Administered No Medication Administered data Immunizations Vaccine Codes Date Status Influenza CVX: 141 05/12/2019 Complete Influenza CVX: 141 05/12/2019 Complete Tetanus, Diptheria, Pertussis CVX: 115 03/07/2016 Co mplete Results Observation Observation Code Item Item Code Result Date S [facility] Location GFR CALC 6857002 GFR Non Afr Amr >60 mL/min 04/10/2016 Un known GFR CALC [id number] GFR Afr Amr >60 mL/min 04/10/2016 Unknow n THYROID STIMULATING HORMONE 70066 TSH 2.104 uIU/mL 04/10/2016 Unknown COMPLETE BLOOD COUNT 6911445 WBC 7.3 10e9/L 04/10/20 16 Unknown COMPLETE BLOOD COUNT [id number] RBC 4.75 10e12/L 2015 Unknown COMPLETE BLOOD COUNT 2257340 HEMOGLOBIN 14.0 g/dL 04/10/20 16 Unknown COMPLETE BLOOD COUNT [id number] HEMATOCRIT 41.2 % 04/10/20 16 Unknown COMPLETE BLOOD COUNT [id number] MCV 86.7 fL 6 Unknown COMPLETE BLOOD COUNT 3496607 MCH 29.5 pg 6 Unknown COMPLETE BLOOD COUNT 5454977 MCHC 34.0 g/dL 6 Unknown COMPLETE BLOOD COUNT 7707093 PLATELET COUNT 269 10e9/L 01/2016 Unknown COMPLETE BLOOD COUNT 1135412 Mean Plt Volume 10.5 fL 01/2016 Unknown COMPLETE BLOOD COUNT 0504198 Neut Auto 60.2 % 6 Unknown COMPLETE BLOOD COUNT [id number] Lymph Auto 26.5 % 04/10/20 16 Unknown COMPLETE BLOOD COUNT 1672552 [place] Auto 9.0 % 6 Unknown COMPLETE BLOOD COUNT 4307515 RDW 13.6 % 6 Unknown COMPLETE BLOOD COUNT 9876084 Eos Auto 4.2 % 6 Unknown COMPLETE BLOOD COUNT 8058766 Baso Auto 0.1 % 6 Unknown COMPLETE BLOOD COUNT 3789729 Neutrophil Abs 4.39 10e9/L Unknown COMPLETE BLOOD COUNT 4303188 Lymphocyte Abs 1.93 10e9/L Unknown COMPLETE BLOOD COUNT 8503525 Monocyte Abs 0.66 10e9/L 01/2016 Unknown COMPLETE BLOOD COUNT 2206593 Eosinophil Abs 0.31 10e9/L Unknown COMPLETE BLOOD COUNT 9661019 RDW-SD 41.7 fL 6 Unknown COMPLETE BLOOD COUNT 9643245 Basophil Abs 0.01 10e9/L 01/2016 Unknown FREE T4 82341 T4 Free 1.09 ng/dL 04/10/2016 Unknown COMPREHENSIVE METABOLIC 32668 AST 27 U/L 2015 Unknown COMPREHENSIVE METABOLIC 52609 ALT 45 U/L 2015 Unknown COMPREHENSIVE METABOLIC 46160 BUN 14 mg/dL 2015 Unknown COMPREHENSIVE METABOLIC 22909 ALBUMIN 4.7 g/dL 2015 Unknown COMPREHENSIVE METABOLIC 02074 CHLORIDE 103 mmol/L 04/10 Unknown COMPREHENSIVE METABOLIC 99786 Bili Total 0.6 mg/dL 04/10 Unknown COMPREHENSIVE METABOLIC 62832 ALK PHOS 38 U/L 2015 Unknown COMPREHENSIVE METABOLIC 96589 SODIUM 138 mmol/L 04/10 Unknown COMPREHENSIVE METABOLIC 25824 CREATININE 0.95 mg/dL 01/2016 Unknown COMPREHENSIVE METABOLIC 39194 CALCIUM 9.4 mg/dL 2015 Unknown COMPREHENSIVE METABOLIC 99780 POTASSIUM 4.5 mmol/L 04/10 Unknown COMPREHENSIVE METABOLIC 95460 Total Protein 6.9 g/dL Unknown COMPREHENSIVE METABOLIC 35482 Glucose 84 mg/dL 2015 Unknown COMPREHENSIVE METABOLIC 15082 Bicarbonate 26 mmol/L 01/2016 Unknown COMPREHENSIVE METABOLIC 79888 AGAP 9 mmol/L 2015 Unknown [facility] 59877 Cholesterol 122 mg/dL 04/10/2016 Unkno wn L[facility] GROUP 91745 Triglyceride 132 mg/dL 04/10/2016 Unkn own [facility] 34964 HDL CHOLESTEROL 40 mg/dL 04/10/2016 U nknown [facility] 20790 Chol/HDL Ratio 3.05 ratio 04/10/2016 U nknown L[facility] GROUP 37102 NON-HDL Chol 82 mg/dL 04/10/2016 Unkn own [facility] GROUP 96112 LDL Cholesterol 56 mg/dL 04/10/2016 U nknown Procedures Procedure Codes Date THER/PROPH/DIAG INJ SC/IM CPT-4: 46290 07/31/2019 TRIAMCINOLONE ACET INJ NOS CPT-4: J3301 07/31/2019 DEXAMETHASONE SODIUM PHOS CPT-4: J1100 07/31/2019 CEFTRIAXONE SODIUM INJECTION CPT-4: J0696 07/31/2019 THER/PROPH/DIAG INJ SC/IM CPT-4: 15914 07/31/2019 IIV4 VACC NO PRSV 6 MTHS TO 64 YRS+ IM CPT-4: 23872 05/12/2019 IMMUNIZATION ADMIN CPT-4: 65510 05/12/2019 IIV4 VACC NO PRSV 6 MTHS TO 64 YRS+ IM CPT-4: 00940 05/12/2019 STREP A ASSAY W/OPTIC CPT-4: 98220 09/24/2016 ROUTINE VENIPUNCTURE CPT-4: 57939 04/10/2016 ASSAY OF FREE THYROXINE CPT-4: 17399 04/10/2016 ASSAY THYROID STIM HORMONE CPT-4: 14210 04/10/2016 COMPREHEN METABOLIC PANEL CPT-4: 00467 04/10/2016 COMPLETE CBC W/AUTO DIFF WBC CPT-4: 53144 04/10/2016 LIPID PANEL CPT-4: 64227 04/10/2016 TDAP VACCINE 7 YRS/> IM CPT-4: 93879 03/07/2016 IMMUNIZATION ADMIN CPT-4: 69533 03/07/2016 Vital Signs Date Vital 07/31/2019 Blood Pressure 1: 128/90 Code: 8480-6 BMI: 37.4 Code: 17869-8 Heart Rate 1: 76 bpm Height: 6' [...] 1: 126 Code: 8480-6 BMI: 36.2 Code: 44364-1 Heart Rate 1: 72 bpm Height: 6' Respiratory Rate: 20 bpm Temperature: 36 .7 (C) / 98.0 (F) Weight: 267 lbs 10/11/2016 Blood Pressure 1: 116 Code: 8480-6 Heart Rate 1: 72 bpm Respiratory Rate: 20 bpm Temperature: 36.7 (C) / 98.1 (F) Weight: 244 lbs 09/24/2016 Blood Pressure 1: 12478 Code: 8480-6 BMI: 33.9 Code: 71783-0 Heart Rate 1: 84 bpm Height: 6' Respiratory Rate: 18 bpm SpO2: 96% Tempera ture: 36.4 (C) / 97.6 (F) Weight: 250 lbs 05/31/2016 Blood Pressure 1: 126/82 Code: 8480-6 BMI: 37.7 Code: 13967-6 Heart Rate 1: 84 bpm Height: 5'12" Respiratory Rate: 20 bpm Temperature: 36 .8 (C) / 98.2 (F) Weight: 274 lbs 04/26/2016 Blood Pressure 1: 126/82 Code: 8480-6 BMI: 37.7 Code: 01838-0 Heart Rate 1: 68 bpm Height: 5'12" Respiratory Rate: 20 bpm Temperature: 36 .6 (C) / 97.8 (F) Weight: 274 lbs 03/27/2016 Blood Pressure 1: 136/94 Code: 8480-6 He art Rate 1: 84 bpm 03/07/2016 Blood Pressure 1: 124/100 Code: 8480-6 BMI: 38.2 Code: 95412-9 Heart Rate 1: 84 bpm Height: 5'12" [...] having Encounters Encounter Performer Location Codes Date ([id number]) OFFICE/OUTPATIENT VISIT EST Diagnosis: Acute suppurative otitis media of right ear[ICD10: H66.001] [address] CPT-4: 41536 07/31/2019 ([id number]) OFFICE/OUTPATIENT VISIT EST Diagnosis: Acute suppurative otitis media of right ear[ICD10: H66.001] Laura KUMARER [address] CPT-4: 18753 06/22/2019 ([id number]) NURSE/OUTPATIENT VISIT EST Diagnosis: FLU VACCINE[ICD10: Z23] Roxi PETERSLINE AlertaPhoneDmitriy WELLSND ER [address] CPT-4: 94774 05/12/2019 ([id number]) OFFICE/OUTPATIENT VISIT EST Diagnosis: Unspecified nonsuppurative otitis media, right ear[ICD10: H65.91] Diagnosis: Otitis externa in other diseases classified elsewhere, right ear[ICD10: H62.41] Roxi EPTERSLINE BeckieDmitriy RUSSELLNDER [address] CPT-4: 88827 03/31/2019 ([id number]) OFFICE/OUTPATIENT VISIT EST Diagnosis: Pain in right wrist[ICD10: M25.531] Roix MEJIA DO [facility] CPT-4: 04884 08/20/2018 ([id number]) OFFICE/OUTPATIENT VISIT EST Diagnosis: Pain in right wrist[ICD10: M25.531] Roxi MEJIA DO [facility] CPT-4: 37324 08/07/2018 ([id number]) OFFICE/OUTPATIENT VISIT EST Diagnosis: Essential (primary) hypertension[ICD10: I10] Roxi MEJIA DO [facility] CPT-4: 67755 10/11/2016 ([id number]) OFFICE/OUTPATIENT VISIT EST Diagnosis: Acute tonsillitis, unspecified[ICD10: J03.90] Jade MEJIA DO [facility] CPT-4: 75005 09/24/2016 OFFICE/OUTPATIENT VISIT EST Diagnosis: Ingrowing nail[ICD10: L60.0] Roxi MEJIA DO [facility] CPT-4: 89057 05/31/2016 ([id number]) OFFICE/OUTPATIENT VISIT EST Diagnosis: Essential (primary) hypertension[ICD10: I10] Roxi MEJIA DO [facility] CPT-4: 06982 04/26/2016 ([id number]) OFFICE/OUTPATIENT VISIT EST Diagnosis: Encounter for general adult medical examination with abnormal findings[ICD10: Z00.01] Diagnosis: Elevated blood-pressure reading, without diagnosis of hypertension[ICD10: R03.0] Roxi MEJIA DO [facility] CPT- 4: 99945 04/10/2016 ([id number]) PREV VISIT NEW AGE 18-39 Diagnosis: Encounter for general adult medical examination with abnormal findings[ICD10: Z00.01] Diagnosis: Encounter for immunization[ICD10: Z23] Diagnosis: Elevated blood-pressure reading, without diagnosis of hypertension[ICD10: R03.0] Diagnosis: Snoring[ICD10: R06.83] Diagnosis: Abnormal weight gain[ICD10: R63.5] Diagnosis: VACCINE FOR TDAP[ICD10: Z23] Jade MEJIA DO [facility] CPT-4: 94107 03/07/2016 Plan of Care Planned Activity Notes [...] ICD-10 : H66.001 06/22/2019 Appointment: Laura Miller [address] [place] [address] ACUTE ILLNESS 06/22/2019 Patient Education: cefdinir- [employer] Coupon [id number] https://www.[employer]samplemd/resources/getResource/61/22p7r97t-86a1-911p-59 Completed 06/22/2019 Appointment: Roxi Mejia WPtel: [address] [place] [address] Immunizations 05/12/2019 Visit Plan: Supportive care. Rest, [...] Rest, Fluids... 03/31/2019 Appointment: Roxi Mejia WPtel: [address] [place] [address] ACUTE ILLNESS 03/31/2019 Patient Education: prednisone- [employer] Coupon [phone] https://www.[employer]HomeSav/samplemd/resources/getResource/61/1608sc95-76m0-34v7-8x Completed 03/31/2019 Patient Education: akkdiyep-uzismeecf-SE- [employer]RX C oupon [id number] https://www.[employer]HomeSav/sampleBullionVault/resources/getResource/61/c9je64u2-31uo-956m-4j Completed 03/31/2019 Visit Diagnosis Plan: Pain in right wrist Discussion: See ortho for updated x- ray/evaluation Prednisone 20mg po BID for 1 week then Celebrex 200mg po BID ICD-9 : 719.43 ICD-10 : M25.531 08/20/2018 Appointment: Roxi Mejia WPtel: [address] [place], [place] [phone] FOLLOW UP 08/20/2018 Patient Education: prednisone- Opt[employer] Coupon [phone] https://www.[employer]/resources/getResource/61/fa44l170-u2v6-7t7k-xm Completed 08/20/2018 Care Plan: Referral Order SNOMED-CT : 30 4711032 Pending 08/20/2018 Visit Diagnosis Plan: Pain in right wrist Discussion: Wrist brace Aleve BID Call in 2 weeks If pain persists then will return to hand surgeon and will need updated imaging ICD-9 : 719.43 ICD-10 : M25.531 08/07/2018 Appointment: Roxi Mejia WPtel: [address] [place], [place] [phone] ACUTE ILLNESS 08/07/2018 Visit Diagnosis Plan: Essential (primary) hypertension Discussion: Stop lisinopril Continue lifestyle change BP and Pulse check in 1month ICD-9 : 401.9 ICD-10 : I10 10/11/2016 Appointment: Roxi Mejia WPtel: [address] [place], [place] [phone] 10/10 confirmed`sl FOLLOW UP 10/11/2016 Patient Education: Patient Medication Summary Completed 10/11/2016 Visit Diagnosis Plan: Acute tonsillitis, unspecified D iscussion: Rapid strep negative Discussed throat culture if symptoms persist or worsen - can call and get culture orders if needed Supportive care for now ICD-9 : 463 ICD-10 : J03.90 09/24/2016 Appointment: Jade Gamboa [address] ACUTE ILLNESS 09/24/2016 Patient Education: Patient Medication Summary Completed 09/24/2016 Visit Plan: Continue epsom salt soaks Ad d Keflex Pull edge of nailbed up as grows out If persists will need partial toenail removal 05/31/2016 Appointment: Roxi Mejia WPtel: [address] [place] [address] 05/30 lm ~sl ACUTE ILLNESS 05/31/2016 Patient Education: Patient Medication Summary Completed 05/31/2016 Visit Plan: Lab from first of month disc ussed Continue lisinopril at 5mg daily 04/26/2016 Appointment: Roxi Mejia WPtel: [address] [place] [address] [phone] confirmed-sp FOLLOW UP 04/26/2016 Patient Education: Patient Medication Summary Completed 04/26/2016 Patient Education: [facility] - Saving Auto[employer] - Lisinopril - 18-64 - Dynamic Portal ID Completed 04/26/2016 Appointment: Roxi Mejia WPtel: [address] [place], [place] [phone] US LAB 04/10/2016 Patient Education: Patient Medication Summary Completed 04/10/2016 Appointment: Roxi Mejia WPtel: [address] [place] [address] BP CHECK 03/27/2016 Patient Education: Patient Medication [...] tsh, free t4 03/07/2016 [facility]ment[id number] NEW PATIENT 03/07/2016 Patient Education: Patient Medication Summary Completed 03/07/2016 Referral: Kimani Medina WPtel: [facility] [address], [address] Referral Initiated Referral: Kimani Medina WPtel: [facility] [address] Referral Appointment Requested Instructions Comment . [...]
--- OUTSIDE RECORDS SUMMARY | 2020-03-03 06:32 | XMS REPORT | Continuity of Care Document ---
Author Organization Unknown Address Unknown Phone Unavailable Allergies Active Description Code Type Severity Reaction Onset Reported/Identified Relationship to Patient Clinical Status Yes No Known Drug Allergies [id number] Drug Allergy Unknown N/A 02/29/2020 Medications There is no data. Problems Date Dx Coded Attending Type Code Diagnosis Diagnosed By 1141 ABDIFATAH HUGHES, VICKY Mullen Ot Z01.818 ENCOUNTER FOR OTHER PREPROCEDURAL EXAMIN 02/29/2020 VICKY GARDINER MD Ot Z01.818 ENCOUNTER FOR OTHER PREPROCEDURAL EXAMIN Procedures There is no data. Results There is no data. Encounters ACCT No. Visit Date/Time Discharge Status Pt. Type Provider Facility Loc./Unit Complaint [id number] 02/29/2020 09:00:00 ACT Outpatient [facility] 03/201707/30/2019 13:40:22 07/30/2019 23:59: 59 CLS Outpatient [id number] 02/29/2020 05:44:00 020 11:42:00 DIS Outpatient VICKY GARDINER MD [facility] PREOP NASAL MASS, EUSTACHIAN TUBE DYSFUNCTION [id number] 03/03/2020 06:27:[address] Outpatient VICKY GARDINER MD [facility] SDC NASAL MASS, EUSTACHIAN TUBE DYSFUNCTION
--- OUTSIDE RECORDS SUMMARY | 2020-03-03 06:32 | XMS REPORT | CCD ---
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 Name Role Phone PP Unavailable CCM Unavailable Summary Purpose Interface Exchange Insurance Providers Payer name Policy type / Coverage type Covered green party ID Effective Begin Date Effective End Date Blue Cross Blue Shield Blue Cross/Blue Shield [id number] Unknown Family History Family History data not found Social History Social History Element Codes Description Effective Dates Marital status Unknown 03/07/2016 Employment Unknown Currently employed 03/07/[address]: 125676634 Never smoker 03/07/[address]: 340403 Currently drinks alc ohol Socially 03/07/2016 Allergies, [...] % eye drops in a dropperette RxNorm: 9018067 1 Drop(s) ophthalmic (eye) two times a day 07/31/2019 08/30/2019 Active Medrol (Chris) 4 mg tablets in a dose pack RxNorm: 938436 Tablet(s) Oral as directed 06/29/2019 06/29/2019 Inactive Medrol (Chris) 4 mg tablets in a dose pack RxNorm: 247188 Tablet(s) Oral as directed 06/29/2019 06/28/2019 Inactive cefdinir 300 mg capsule RxNorm: 563510 2 Capsule(s) Oral QD 019 07/02/2019 Inactive Amoxil 500 mg tablet RxNorm: 901393 2 Tablet(s) PO BID 04/03/201912/2018 Inactive Flonase Allergy Relief 50 mcg/actuation nasal spray,suspensi on RxNorm: 6247143 2 [place] NASAL QHS 03/31/2019 No Stop Date Active prednisone 20 mg tablet RxNorm: 102379 1 Tablet(s) PO BID 03/31/2019 04/04/2019 Inactive eamevlyw-ylwmkhkvi-hoohkdmog 3.5 mg/mL-10,000 unit/mL- 1 % ear solution RxNorm: 130827 4 Drop(s) otic (ear) TID for 1 week 03/31/2019 06/21/2019 Inact best Celebrex 200 mg capsule RxNorm: 417801 1 Capsule(s) PO BID for pain 08/20/2018 09/18/2018 Inactive prednisone 20 mg tablet RxNorm: 313748 1 Tablet(s) PO BID 08/20/2018 08/26/2018 Inactive Keflex 500 mg capsule RxNorm: 921541 1 Capsule(s) PO QID 05/31/2016 1 08/09/2015 Inactive lisinopril 5 mg tablet RxNorm: 203852 1 Tablet(s) PO QD 04/26/2016 Inactive lisinopril 5 mg tablet RxNorm: 340777 1 Tablet(s) PO QD 03/29/2016 Inactive lisinopril 5 mg tablet RxNorm: 914430 1 Tablet(s) PO QD 03/29/2016 Inactive Multivitamin & Mineral Formula tablet RxNorm: 1 Tablet(s) PO Q D No Start Date 10/10/2016 Inactive Medication Administered No Medication Administered data Immunizations Vaccine Codes Date Status Influenza CVX: 141 05/12/2019 Complete Influenza CVX: 141 05/12/2019 Complete Tetanus, Diptheria, Pertussis CVX: 115 03/07/2016 Co mplete Results Observation Observation Code Item Item Code Result Date S [facility] Location GFR CALC 4792546 GFR Non Afr Amr >60 mL/min 04/10/2016 Un known GFR CALC [id number] GFR Afr Amr >60 mL/min 04/10/2016 Unknow n THYROID STIMULATING HORMONE 10351 TSH 2.104 uIU/mL 04/10/2016 Unknown COMPLETE BLOOD COUNT 7992231 WBC 7.3 10e9/L 04/10/20 16 Unknown COMPLETE BLOOD COUNT 9328398 RBC 4.75 10e12/L 2015 Unknown COMPLETE BLOOD COUNT 6287634 HEMOGLOBIN 14.0 g/dL 04/10/20 16 Unknown COMPLETE BLOOD COUNT 8848193 HEMATOCRIT 41.2 % 04/10/20 16 Unknown COMPLETE BLOOD COUNT 9602013 MCV 86.7 fL 6 Unknown COMPLETE BLOOD COUNT [id number] MCH 29.5 pg 6 Unknown COMPLETE BLOOD COUNT 5056352 MCHC 34.0 g/dL 6 Unknown COMPLETE BLOOD COUNT 0845191 PLATELET COUNT 269 10e9/L 01/2016 Unknown COMPLETE BLOOD COUNT [id number] Mean Plt Volume 10.5 fL 01/2016 Unknown COMPLETE BLOOD COUNT 3745254 Neut Auto 60.2 % 6 Unknown COMPLETE BLOOD COUNT [id number] Lymph Auto 26.5 % 04/10/20 16 Unknown COMPLETE BLOOD COUNT 0756312 [place] Auto 9.0 % 6 Unknown COMPLETE BLOOD COUNT 0678747 RDW 13.6 % 6 Unknown COMPLETE BLOOD COUNT 3809601 Eos Auto 4.2 % 6 Unknown COMPLETE BLOOD COUNT 3769626 Baso Auto 0.1 % 6 Unknown COMPLETE BLOOD COUNT 4082898 Neutrophil Abs 4.39 10e9/L Unknown COMPLETE BLOOD COUNT 2129106 Lymphocyte Abs 1.93 10e9/L Unknown COMPLETE BLOOD COUNT 2861715 Monocyte Abs 0.66 10e9/L 01/2016 Unknown COMPLETE BLOOD COUNT 8052135 Eosinophil Abs 0.31 10e9/L Unknown COMPLETE BLOOD COUNT 9633325 RDW-SD 41.7 fL 6 Unknown COMPLETE BLOOD COUNT [id number] Basophil Abs 0.01 10e9/L 01/2016 Unknown FREE T4 55042 T4 Free 1.09 ng/dL 04/10/2016 Unknown COMPREHENSIVE METABOLIC 87226 AST 27 U/L 2015 Unknown COMPREHENSIVE METABOLIC 09540 ALT 45 U/L 2015 Unknown COMPREHENSIVE METABOLIC 20915 BUN 14 mg/dL 2015 Unknown COMPREHENSIVE METABOLIC 87321 ALBUMIN 4.7 g/dL 2015 Unknown COMPREHENSIVE METABOLIC 68311 CHLORIDE 103 mmol/L 04/10 Unknown COMPREHENSIVE METABOLIC 83987 Bili Total 0.6 mg/dL 04/10 Unknown COMPREHENSIVE METABOLIC 25527 ALK PHOS 38 U/L 2015 Unknown COMPREHENSIVE METABOLIC 48806 SODIUM 138 mmol/L 04/10 Unknown COMPREHENSIVE METABOLIC 00054 CREATININE 0.95 mg/dL 01/2016 Unknown COMPREHENSIVE METABOLIC 83508 CALCIUM 9.4 mg/dL 2015 Unknown COMPREHENSIVE METABOLIC 04613 POTASSIUM 4.5 mmol/L 04/10 Unknown COMPREHENSIVE METABOLIC 26551 Total Protein 6.9 g/dL Unknown COMPREHENSIVE METABOLIC 20152 Glucose 84 mg/dL 2015 Unknown COMPREHENSIVE METABOLIC 28791 Bicarbonate 26 mmol/L 01/2016 Unknown COMPREHENSIVE METABOLIC 76645 AGAP 9 mmol/L 2015 Unknown LIP[facility] GROUP 74182 Cholesterol 122 mg/dL 04/10/2016 Unkno wn LIPID GROUP 70674 Triglyceride 132 mg/dL 04/10/2016 Unkn own LIPID GROUP 86138 HDL CHOLESTEROL 40 mg/dL 04/10/2016 U nknown LIPID GROUP 18581 Chol/HDL Ratio 3.05 ratio 04/10/2016 U nknown LIPID GROUP 18323 NON-HDL Chol 82 mg/dL 04/10/2016 Unkn own LIPID GROUP 10611 LDL Cholesterol 56 mg/dL 04/10/2016 U nknown Procedures Procedure Codes Date THER/PROPH/DIAG INJ SC/IM CPT-4: 08244 07/31/2019 TRIAMCINOLONE ACET INJ NOS CPT-4: J3301 07/31/2019 DEXAMETHASONE SODIUM PHOS CPT-4: J1100 07/31/2019 CEFTRIAXONE SODIUM INJECTION CPT-4: J0696 07/31/2019 THER/PROPH/DIAG INJ SC/IM CPT-4: 84748 07/31/2019 IIV4 VACC NO PRSV 6 MTHS TO 64 YRS+ IM CPT-4: 15987 05/12/2019 IMMUNIZATION ADMIN CPT-4: 73635 05/12/2019 IIV4 VACC NO PRSV 6 MTHS TO 64 YRS+ IM CPT-4: 36310 05/12/2019 STREP A ASSAY W/OPTIC CPT-4: 65323 09/24/2016 ROUTINE VENIPUNCTURE CPT-4: 17737 04/10/2016 ASSAY OF FREE THYROXINE CPT-4: 58890 04/10/2016 ASSAY THYROID STIM HORMONE CPT-4: 46900 04/10/2016 COMPREHEN METABOLIC PANEL CPT-4: 18832 04/10/2016 COMPLETE CBC W/AUTO DIFF WBC CPT-4: 58830 04/10/2016 LIPID PANEL CPT-4: 44148 04/10/2016 TDAP VACCINE 7 YRS/> IM CPT-4: 49189 03/07/2016 IMMUNIZATION ADMIN CPT-4: 97064 03/07/2016 Vital Signs Date Vital 07/31/2019 Blood Pressure 1: 128/90 Code: 8480-6 BMI: 37.4 Code: 32390-1 Heart Rate 1: 76 bpm Height: 6' [...] 1: 126 Code: 8480-6 BMI: 36.2 Code: 99604-8 Heart Rate 1: 72 bpm Height: 6' Respiratory Rate: 20 bpm Temperature: 36 .7 (C) / 98.0 (F) Weight: 267 lbs 10/11/2016 Blood Pressure 1: 116 Code: 8480-6 Heart Rate 1: 72 bpm Respiratory Rate: 20 bpm Temperature: 36.7 (C) / 98.1 (F) Weight: 244 lbs 09/24/2016 Blood Pressure 1: 12478 Code: 8480-6 BMI: 33.9 Code: 17841-1 Heart Rate 1: 84 bpm Height: 6' Respiratory Rate: 18 bpm SpO2: 96% Tempera ture: 36.4 (C) / 97.6 (F) Weight: 250 lbs 05/31/2016 Blood Pressure 1: 126/82 Code: 8480-6 BMI: 37.7 Code: 73011-9 Heart Rate 1: 84 bpm Height: 5'12" Respiratory Rate: 20 bpm Temperature: 36 .8 (C) / 98.2 (F) Weight: 274 lbs 04/26/2016 Blood Pressure 1: 126/82 Code: 8480-6 BMI: 37.7 Code: 82622-3 Heart Rate 1: 68 bpm Height: 5'12" Respiratory Rate: 20 bpm Temperature: 36 .6 (C) / 97.8 (F) Weight: 274 lbs 03/27/2016 Blood Pressure 1: 136/94 Code: 8480-6 He art Rate 1: 84 bpm 03/07/2016 Blood Pressure 1: 124/100 Code: 8480-6 BMI: 38.2 Code: 01803-7 Heart Rate 1: 84 bpm Height: 5'12" [...] having Encounters Encounter Performer Location Codes Date ([id number]) OFFICE/OUTPATIENT VISIT EST Diagnosis: Acute suppurative otitis media of right ear[ICD10: H66.001] Laura [facility]RAX CPT-4: 83153 07/31/2019 ([id number]) OFFICE/OUTPATIENT VISIT EST Diagnosis: Acute suppurative otitis media of right ear[ICD10: H66.001] Laura KUMARER [employer] CPT-4: 22973 06/22/2019 ([id number]) NURSE/OUTPATIENT VISIT EST Diagnosis: FLU VACCINE[ICD10: Z23] Roxi PETERSLINE CriticMania.comDmitriy WELLSND ER [employer] CPT-4: 05018 05/12/2019 ([id number]) OFFICE/OUTPATIENT VISIT EST Diagnosis: Unspecified nonsuppurative otitis media, right ear[ICD10: H65.91] Diagnosis: Otitis externa in other diseases classified elsewhere, right ear[ICD10: H62.41] Roxi PETERSLINE BeckieDmitriy RUSSELLNDER [employer] CPT-4: 07393 03/31/2019 ([id number]) OFFICE/OUTPATIENT VISIT EST Diagnosis: Pain in right wrist[ICD10: M25.531] Roxi MEJIA DO [facility] CPT-4: 65928 08/20/2018 ([id number]) OFFICE/OUTPATIENT VISIT EST Diagnosis: Pain in right wrist[ICD10: M25.531] Roxi MEJIA DO [facility] CPT-4: 47073 08/07/2018 ([id number]) OFFICE/OUTPATIENT VISIT EST Diagnosis: Essential (primary) hypertension[ICD10: I10] Roxi MEJIA DO [facility] CPT-4: 56073 10/11/2016 ([id number]) OFFICE/OUTPATIENT VISIT EST Diagnosis: Acute tonsillitis, unspecified[ICD10: J03.90] Jade MEJIA DO [facility] CPT-4: 06623 09/24/2016 OFFICE/OUTPATIENT VISIT EST Diagnosis: Ingrowing nail[ICD10: L60.0] Roxi MEJIA DO [facility] CPT-4: 81934 05/31/2016 ([id number]) OFFICE/OUTPATIENT VISIT EST Diagnosis: Essential (primary) hypertension[ICD10: I10] Roxi MEJIA DO [facility] CPT-4: 63635 04/26/2016 ([id number]) OFFICE/OUTPATIENT VISIT EST Diagnosis: Encounter for general adult medical examination with abnormal findings[ICD10: Z00.01] Diagnosis: Elevated blood-pressure reading, without diagnosis of hypertension[ICD10: R03.0] Roxi MEJIA DO [facility] CPT- 4: 42987 04/10/2016 ([id number]) PREV VISIT NEW AGE 18-39 Diagnosis: Encounter for general adult medical examination with abnormal findings[ICD10: Z00.01] Diagnosis: Encounter for immunization[ICD10: Z23] Diagnosis: Elevated blood-pressure reading, without diagnosis of hypertension[ICD10: R03.0] Diagnosis: Snoring[ICD10: R06.83] Diagnosis: Abnormal weight gain[ICD10: R63.5] Diagnosis: VACCINE FOR TDAP[ICD10: Z23] Jade MEJIA DO [facility] CPT-4: 09173 03/07/2016 Plan of Care Planned Activity Notes [...] ICD-10 : H66.001 06/22/2019 Appointment: Laura Miller [address] [place] [address] ACUTE ILLNESS 06/22/2019 Patient Education: cefdinir- [employer] Coupon [id number] https://www.[employer]/samplemd/resources/getResource/61/[email or web address] Completed 06/22/2019 Appointment: Roxi Mejia WPtel: [address] [place] [address] Immunizations 05/12/2019 Visit Plan: Supportive care. Rest, Fluid s, Tylenol/Motrin prn fever or bodyaches. Notify if worsening symptoms. 03/31/2019 Visit Diagnosis Plan: Otitis externa in other diseases classified elsewhere, right ear Discussion: Cortisporin otic drops ICD-9 : 380.13 ICD-10 : H62.41 03/31/2019 Visit NOS Plan: Plan Notes: Supportive care. Rest, Fluids... 03/31/2019 Visit Diagnosis Plan: Unspecified nonsuppurative otiti s media, right ear Discussion: Prednisone Flonase ICD-9 : 382.9 ICD-10 : H65.91 03/31/2019 Appointment: Roxi Mejia WPtel: [address] [place] [address] ACUTE ILLNESS 03/31/2019 Patient Education: prednisone- [employer] Coupon [phone] https://www.[employer]/samplemd/resources/getResource/61/[email or web address] Completed 03/31/2019 Patient Education: ntmizetv-mbzenlxsj-GC- [employer] C oupon [id number] https://www.[employer]/sampleBioheart/resources/getResource/61/a0aj07n9-16cd-911a-5a Completed 03/31/2019 Visit Diagnosis Plan: Pain in right wrist Discussion: See ortho for updated x- ray/evaluation Prednisone 20mg po BID for 1 week then Celebrex 200mg po BID ICD-9 : 719.43 ICD-10 : M25.531 08/20/2018 Appointment: Roxi Mejia WPtel: [address] [place], [place] [phone] FOLLOW UP 08/20/2018 Patient Education: prednisone- [employer] Coupon [phone] https://www.[employer]house/resources/getResource/61/ic74t894-[email or web address]-zn Completed 08/20/2018 Care Plan: Referral Order SNOMED-CT : 30 [id number] Pending 08/20/2018 Visit Diagnosis Plan: Pain in right wrist Discussion: Wrist brace Aleve BID Call in 2 weeks If pain persists then will return to hand surgeon and will need updated imaging ICD-9 : 719.43 ICD-10 : M25.531 08/07/2018 Appointment: Roxi Mejia WPtel: [address] [place], [place] [phone] ACUTE ILLNESS 08/07/2018 Visit Diagnosis Plan: Essential (primary) hypertension Discussion: Stop lisinopril Continue lifestyle change BP and Pulse check in 1month ICD-9 : 401.9 ICD-10 : I10 10/11/2016 Appointment: Roxi Mejia WPtel: [address] [place], [place] [phone] 10/10 confirmed`sl FOLLOW UP 10/11/2016 Patient Education: Patient Medication Summary Completed 10/11/2016 Visit Diagnosis Plan: Acute tonsillitis, unspecified D iscussion: Rapid strep negative Discussed throat culture if symptoms persist or worsen - can call and get culture orders if needed Supportive care for now ICD-9 : 463 ICD-10 : J03.90 09/24/2016 Appointment: Jade Gamboa [address] ACUTE ILLNESS 09/24/2016 Patient Education: Patient Medication Summary Completed 09/24/2016 Visit Plan: Continue epsom salt soaks Ad d Keflex Pull edge of nailbed up as grows out If persists will need partial toenail removal 05/31/2016 Appointment: Roxi Mejia WPtel: [address] [place] [address] 05/30 lm ~sl ACUTE ILLNESS 05/31/2016 Patient Education: Patient Medication Summary Completed 05/31/2016 Visit Plan: Lab from first of month disc ussed Continue lisinopril at 5mg daily 04/26/2016 Appointment: Roxi Mejia WPtel: [address] [place] [address] [phone] confirmed-sp FOLLOW UP 04/26/2016 Patient Education: Patient Medication Summary Completed 04/26/2016 Patient Education: [facility] - Saving [employer] - Lisinopril - 18-64 - Dynamic Portal ID Completed 04/26/2016 Appointment: Roxi Mejia WPtel: [address] [place], [place] [phone] US LAB 04/10/2016 Patient Education: Patient Medication Summary Completed 04/10/2016 Appointment: Roxi Mejia WPtel: [address] [place] [address] BP CHECK 03/27/2016 Patient Education: Patient Medication [...] tsh, free t4 03/07/2016 [facility]ment[id number] NEW PATIENT 03/07/2016 Patient Education: Patient Medication Summary Completed 03/07/2016 Referral: Kimani Medina WPtel: [facility] [address], [address] Referral Initiated Referral: Kimani Medina WPtel: [facility] [address] Referral Appointment Requested Instructions Comment . [...]
--- OUTSIDE RECORDS SUMMARY | 2020-03-03 06:32 | XMS REPORT | CCD ---
Author Author Avila Gamboa Organization [facility] Address [address] [place] [id number] Phone Unavailable Care Team Providers Care Chronic Condition Nurse Name Role Phone PP Unavailable CCM Unavailable Summary Purpose Interface Exchange Insurance Providers Payer name Policy type / Coverage type Covered alliance party ID Effective Begin Date Effective End Date Blue Cross Blue Shield Blue Cross/Bl ue Shield [id number] 2018 Un known Family History Family History data not found Social History Social History Element Codes Description Effective Dates Marital status Unknown M arried 03/07/2016 Employment Unknown 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 03/07/[address]: 732809123 Never smoker 03/07/[address]: 634418 Currently drinks alcohol Socially 03/07/2016 Allergies, Adverse Reactions, Alerts Substance Reaction Codes Entered Date Inactivated Date Status * NO KNOWN FOOD DALTON RGIES Unknown 03/07/2016 No Inactive Date Active _ Unknown 03/07/2016 No Inactive Date Active * NO KNOWN DRUG DALTON RGIES Unknown 03/07/2016 No Inactive Date Active Past Medical History Illness Codes Condition Status Onset Date Resolved Date Otitis externa in ot her diseases classified elsewhere, right ear ICD-9: 380.13 ICD-10: H62.41 Active 03/31/2019 Unknown Unspecified nonsuppu rative otitis media, right ear ICD-9: 382.9 ICD-10: H65.91 Active 03/31/2019 Unknown Pain in right wrist ICD- 9: 719.43 ICD-10: M25.531 Active 08/07/2018 Unknown Essential (primary) hypertension ICD-9: 401.9 ICD-10: I10 Active 04/25/2016 Unknown Acute tonsillitis, u nspecified ICD-9: 463 ICD-10: J03.90 Active 09/24/2016 Unknown Ingrowing nail ICD-9: 703.0 ICD-10: L60.0 Active 05/30/2016 Unknown Elevated blood-press ure reading, without diagnosis of hypertension ICD-9: 796.2 ICD-10: R03.0 Active 04/09/2016 Unknown Encounter for genera l adult medical examination with abnormal findings ICD-9: V70.0 ICD-10: Z00.01 Active 04/09/2016 Unknown Abnormal weight gain ICD-9: 783.1 ICD-10: R63.5 Active 03/06/2016 Unknown Encounter for immuni zation ICD-9: V05.9 ICD-10: Z23 Active 03/06/2016 Unknown Snoring ICD-9: 786.09 ICD-10: R06.83 Active 03/06/2016 Unknown VACCINE FOR TDAP ICD-9: V06.1 ICD-10: Z23 Active 03/06/2016 Unknown Problems Condition Codes Effectiv e Dates Condition Status Otitis externa in ot her diseases classified elsewhere, right ear ICD-9: 380.13 ICD-10: H62.41 03/31/2019 Active Unspecified nonsuppu rative otitis media, right ear ICD-9: 382.9 ICD-10: H65.91 03/31/2019 Active Pain in right wrist ICD- 9: 719.43 ICD-10: M25.531 08/07/2018 Active Essential (primary) hypertension ICD-9: 401.9 ICD-10: I10 04/25/2016 Active Acute tonsillitis, u nspecified ICD-9: 463 ICD-10: J03.90 09/24/2016 Active Ingrowing nail ICD-9: 703.0 ICD-10: L60.0 05/30/2016 Active Elevated blood-press ure reading, without diagnosis of hypertension ICD-9: 796.2 ICD-10: R03.0 04/09/2016 Active Encounter for genera l adult medical examination with abnormal findings ICD-9: V70.0 ICD-10: Z00.01 04/09/2016 Active Abnormal weight gain ICD-9: 783.1 ICD-10: R63.5 03/06/2016 Active Encounter for immuni zation ICD-9: V05.9 ICD-10: Z23 03/06/2016 Active Snoring ICD-9: 786.09 ICD-10: R06.83 03/06/2016 Active VACCINE FOR TDAP ICD-9: V06.1 ICD-10: Z23 03/06/2016 Active Medications Medication Codes Instruc tions Start Date Stop Date Sta tus Fill Instructions prednisone 20 mg tablet RxNorm: 540912 1 Tablet(s) PO BID 03/31/2019 04/04/2019 Active llbwpfkw-kdanzaqda-g ydrocort 3.5 mg/mL-10,000 unit/mL-1 % ear solution RxNorm: 389971 4 Drop(s) otic (ear) TID for 1 week 03/31/2019 No Stop Date Active Flonase Allergy Reli ef 50 mcg/actuation nasal spray,suspension RxNorm: 8056349 2 [place] NASAL QHS 03/31/2019 No Stop Date Active Celebrex 200 mg capsule RxNorm: 958851 1 Capsule(s) PO BID for pain 08/20/2018 09/18/2018 Inactive prednisone 20 mg tablet RxNorm: 378994 1 Tablet(s) PO BID 08/20/2018 08/26/2018 Inactive Keflex 500 mg capsule RxNorm: 788068 1 Capsule(s) PO QID 05/31/2016 06/09/2016 Inactive lisinopril 5 mg tablet RxNorm: 449046 1 Tablet(s) PO QD 04/26/2016 08/06/2018 Inactive lisinopril 5 mg tablet RxNorm: 648374 1 Tablet(s) PO QD 03/29/2016 03/28/2016 Inactive lisinopril 5 mg tablet RxNorm: 112733 1 Tablet(s) PO QD 03/29/2016 04/25/2016 Inactive Multivitamin & Quality Analyst al Formula tablet RxNorm: 1 Tablet(s) PO QD No Start Date 10/10/2016 Inactive Medication Administered No Medication Administered data Immunizations Vaccine Codes Date Status Tetanus, Diptheria, Pertussis CVX: 115 03/07/2016 completed Assessments Condition Codes Effectiv e Dates Otitis externa in other diseases classif ied elsewhere, right ear ICD-10: H62.41 ICD-9: 380.13 03/31/2019 Unspecified nonsuppurative otitis media, right ear ICD-10: H65.91 ICD-9: 382.9 03/31/2019 Pain in right wrist ICD-10: M25.531 ICD-9: 719.43 08/20/2018 Essential (primary) hypertension ICD -10: I10 ICD-9: 401.9 10/11/2016 Acute tonsillitis, unspecified ICD-1 0: J03.90 ICD-9: 463 09/24/2016 Ingrowing nail ICD-10: L60.0 ICD-9: 703.0 05/31/2016 Encounter for general adult medical exam ination with abnormal findings ICD-10: Z00.01 ICD-9: V70.0 04/10/2016 Elevated blood-pressure reading, without diagnosis of hypertension ICD-10: R03.0 ICD-9: 796.2 04/10/2016 Snoring ICD-10: R06.83 ICD-9: 786.09 03/07/2016 Abnormal weight gain ICD-10: R63.5 ICD-9: 783.1 03/07/2016 VACCINE FOR TDAP ICD-10: Z23 ICD-9: V06.1 03/07/2016 Encounter for immunization ICD-10: Z 23 ICD-9: V05.9 03/07/2016 Reason For Visit Reason For Visit Effective Dates Notes otalgia 03/31/2019 follow up 08/20/2018 wrist pain 08/07/2018 follow up 10/11/2016 sore throat 09/24/2016 ingrown toenail 05/31/2016 follow up 04/26/2016 lab draw 04/10/2016 blood pressure check 03/27/2016 ~generic 03/07/2016 [place] [facility]- Patient is having Results Observation Observation Code Item Item Code Result Date GFR CALC 3245045 GFR Non Afr Amr >60 mL/min 04/10/2016 GFR CALC 3546984 GFR Afr Amr >60 mL/min 04/10/2016 THYROID STIMULATING HORMONE 87372 TSH 2.104 uIU/mL 6 COMPLETE BLOOD COUNT 4715276 WBC 7.3 10e9/L 04/10/2016 COMPLETE BLOOD COUNT 0045418 RBC 4.75 10e12/L 6 COMPLETE BLOOD COUNT 7926683 HEMOGLOBIN 14.0 g/dL 04/10/2016 COMPLETE BLOOD COUNT 8561029 HEMATOCRIT 41.2 % 04/10/2016 COMPLETE BLOOD COUNT 8176141 MCV 86.7 fL 04/10/2016 COMPLETE BLOOD COUNT 3532493 MCH 29.5 pg 04/10/2016 COMPLETE BLOOD COUNT 4761979 MCHC 34.0 g/dL 04/10/2016 COMPLETE BLOOD COUNT 4539964 PLATELET COUNT 269 10e9/L 04/10/2016 COMPLETE BLOOD COUNT 5104904 Mean Plt Volume 10.5 fL 04/10/2016 COMPLETE BLOOD COUNT 5525482 Neut Auto 60.2 % 04/10/2016 COMPLETE BLOOD COUNT 2116626 Lymph Auto 26.5 % 04/10/2016 COMPLETE BLOOD COUNT 9805321 [place] Auto 9.0 % 04/10/2016 COMPLETE BLOOD COUNT 3209098 RDW 13.6 % 04/10/2016 COMPLETE BLOOD COUNT 7700036 Eos Auto 4.2 % 04/10/2016 COMPLETE BLOOD COUNT 9888766 Baso Auto 0.1 % 04/10/2016 COMPLETE BLOOD COUNT 1791152 Neutrophil Abs 4.39 10e9/L 04/10/2016 COMPLETE BLOOD COUNT 1264462 Lymphocyte Abs 1.93 10e9/L 04/10/2016 COMPLETE BLOOD COUNT 1068521 Monocyte Abs 0.66 10e9/L 04/10/2016 COMPLETE BLOOD COUNT 7179643 Eosinophil Abs 0.31 10e9/L 04/10/2016 COMPLETE BLOOD COUNT 4905032 RDW-SD 41.7 fL 04/10/2016 COMPLETE BLOOD COUNT 0587791 Basophil Abs 0.01 10e9/L 04/10/2016 FREE T4 89425 T4 Free 1.09 ng/dL 04/10/2016 COMPREHENSIVE METABOLIC 47485 AST 27 U/L 04/10/2016 COMPREHENSIVE METABOLIC 05476 ALT 45 U/L 04/10/2016 COMPREHENSIVE METABOLIC 69052 BUN 14 mg/dL 04/10/2016 COMPREHENSIVE METABOLIC 59804 ALBUMIN 4.7 g/dL 04/10/2016 COMPREHENSIVE METABOLIC 46493 CHLORIDE 103 mmol/L 04/10/2016 COMPREHENSIVE METABOLIC 18806 Bili Total 0.6 mg/dL 04/10/2016 COMPREHENSIVE METABOLIC 06331 ALK PHOS 38 U/L 04/10/2016 COMPREHENSIVE METABOLIC 05240 SODIUM 138 mmol/L 04/10/2016 COMPREHENSIVE METABOLIC 80118 CREATININE 0.95 mg/dL 04/10/2016 COMPREHENSIVE METABOLIC 18076 CALCIUM 9.4 mg/dL 04/10/2016 COMPREHENSIVE METABOLIC 64152 POTASSIUM 4.5 mmol/L 04/10/2016 COMPREHENSIVE METABOLIC 15485 Total Protein 6.9 g/dL 04/10/2016 COMPREHENSIVE METABOLIC 33590 Glucose 84 mg/dL 04/10/2016 COMPREHENSIVE METABOLIC 95854 Bicarbonate 26 mmol/L 04/10/2016 COMPREHENSIVE METABOLIC 20619 AGAP 9 mmol/L 04/10/2016 LIPID GROUP 39923 Choles terol 122 mg/dL 04/10/2016 LIPID GROUP 10481 Trigly ceride 132 mg/dL 04/10/2016 LIPID GROUP 84715 HDL CH OLESTEROL 40 mg/dL 04/10/2016 LIPID GROUP 10316 Chol/H DL Ratio 3.05 ratio 04/10/2016 LIPID GROUP 72402 NON-HD L Chol 82 mg/dL 04/10/2016 LIPID GROUP 15914 LDL Ch olesterol 56 mg/dL 04/10/2016 Review of Systems System Result Effective Dates Dermatologic No scar Dermatologic No rash Respiratory No wheezing 03/31/2019 Respiratory No productive sputum 03/31/2019 Respiratory No pleuritic pain 03/31/2019 Respiratory No dyspnea 0 03/31/2019 Respiratory No cough Respiratory No asthma Ears/Nose/Throat/Neck No sinusitis 03/31/2019 Ears/Nose/Throat/Neck No sinus congestion 03/31/2019 Ears/Nose/Throat/Neck otalgia 03/31/2019 Constitutional fever Constitutional fatigue 0 03/31/2019 Musculoskeletal joint complaint 08/07/2018 Cardiovascular hypertension 10/11/2016 Constitutional weight loss 10/11/2016 Constitutional No night sweats 09/24/2016 Constitutional No recent illness 09/24/2016 Constitutional No fatigue 09/24/2016 Constitutional No fever 09/24/2016 Constitutional No insomnia 09/24/2016 Constitutional No weight loss 09/24/2016 Eyes No eye pain 017 Eyes No photophobia 09/06 Eyes No vision change Eyes No visual disturbance 09/24/2016 Ears/Nose/Throat/Neck No nasal discharge 09/24/2016 Ears/Nose/Throat/Neck No sinus congestion 09/24/2016 Ears/Nose/Throat/Neck sore throat 09/24/2016 Ears/Nose/Throat/Neck No dizziness 09/24/2016 Ears/Nose/Throat/Neck No eustachian tube dysfunction 09/24/2016 Ears/Nose/Throat/Neck No facial pain 09/24/2016 Ears/Nose/Throat/Neck headache 09/24/2016 Ears/Nose/Throat/Neck No otalgia 09/24/2016 Ears/Nose/Throat/Neck No otorrhea 09/24/2016 Ears/Nose/Throat/Neck No postnasal drip 09/24/2016 Respiratory No cough Respiratory No dyspnea 0 09/24/2016 Respiratory No pleuritic pain 09/24/2016 Respiratory No productive sputum 09/24/2016 Respiratory No wheezing 09/24/2016 Respiratory No chest congestion 09/24/2016 Respiratory No chest tightness 09/24/2016 Gastrointestinal No abdominal pain 09/24/2016 Gastrointestinal No constipation 09/24/2016 Gastrointestinal No diarrhea 09/24/2016 Gastrointestinal No gastroesophageal reflu x 09/24/2016 Gastrointestinal No melena 09/24/2016 Gastrointestinal No nausea 09/24/2016 Gastrointestinal No vomiting 09/24/2016 Dermatologic No rash Dermatologic No scar Hematologic/Lymphatic No abnormal ec chymoses 09/24/2016 Hematologic/Lymphatic No petechiae 09/24/2016 Hematologic/Lymphatic No abnormal bl eeding and bruising 09/24/2016 Hematologic/Lymphatic No anemia 09/24/2016 Hematologic/Lymphatic No lymph node enlargement/mass 09/24/2016 Gastrointestinal No hemorrhoids 05/31/2016 Gastrointestinal No hepatitis 05/31/2016 Gastrointestinal No abdominal pain 05/31/2016 Gastrointestinal No constipation 05/31/2016 Gastrointestinal No diarrhea 05/31/2016 Gastrointestinal No gastroesophageal reflu x 05/31/2016 Gastrointestinal No melena 05/31/2016 Gastrointestinal No nausea 05/31/2016 Gastrointestinal No vomiting 05/31/2016 Cardiovascular hypertension 04/26/2016 Constitutional No night sweats 03/07/2016 Constitutional No recent illness 03/07/2016 Constitutional No fatigue 03/07/2016 Constitutional No fever 03/07/2016 Constitutional No insomnia 03/07/2016 Constitutional No weight loss 03/07/2016 Eyes No eye pain 016 Eyes No photophobia 10/2015 Eyes No vision change Eyes No visual disturbance 03/07/2016 Ears/Nose/Throat/Neck No hearing loss 03/07/2016 Ears/Nose/Throat/Neck No nasal discharge 03/07/2016 Ears/Nose/Throat/Neck No sinus congestion 03/07/2016 Ears/Nose/Throat/Neck No sore throat 03/07/2016 Cardiovascular No arrhythmia 03/07/2016 Cardiovascular No chest pain/pressure 03/07/2016 Cardiovascular No edema 03/07/2016 Cardiovascular No exercise intolerance 03/07/2016 Cardiovascular No orthopnea 03/07/2016 Cardiovascular No palpitations 03/07/2016 Respiratory No asthma Respiratory No cough 10/2015 Respiratory No dyspnea 0 03/07/2016 Respiratory No pleuritic pain 03/07/2016 Respiratory No productive sputum 03/07/2016 Respiratory No wheezing 03/07/2016 Gastrointestinal No hemorrhoids 03/07/2016 Gastrointestinal No hepatitis 03/07/2016 Gastrointestinal No abdominal pain 03/07/2016 Gastrointestinal No constipation 03/07/2016 Gastrointestinal No diarrhea 03/07/2016 Gastrointestinal No gastroesophageal reflu x 03/07/2016 Gastrointestinal No melena 03/07/2016 Gastrointestinal No nausea 03/07/2016 Gastrointestinal No vomiting 03/07/2016 Genitourinary/Nephrology No dysuria 03/07/2016 Genitourinary/Nephrology No nocturia 03/07/2016 Genitourinary/Nephrology No urinary incontinence 03/07/2016 Musculoskeletal No stiffness 03/07/2016 Musculoskeletal No swelling 03/07/2016 Musculoskeletal No muscle weakness 03/07/2016 Musculoskeletal No myalgias 03/07/2016 Dermatologic No rash 10/2015 Dermatologic No scar 10/2015 Neurologic No dizziness 03/07/2016 Neurologic No headache 0 03/07/2016 Neurologic No neck pain 03/07/2016 Neurologic No syncope Psychiatric No anxiety 0 03/07/2016 Psychiatric No depression 03/07/2016 Endocrine No goiter 08/0 10/2015 Endocrine No hyperglycemia 03/07/2016 Endocrine No hypoglycemia 03/07/2016 Hematologic/Lymphatic No abnormal ec chymoses 03/07/2016 Hematologic/Lymphatic No petechiae 03/07/2016 Hematologic/Lymphatic No abnormal bl eeding and bruising 03/07/2016 Hematologic/Lymphatic No anemia 03/07/2016 Hematologic/Lymphatic No lymph node enlargement/mass 03/07/2016 Allergy/Immunology No food allergy 03/07/2016 Physical Exam Exam Name System Name It em Name Status Result Effective Dates Notes Full Exam - General Psychiatric mood and affect Overall: normal mood and affect 03/31/2019 None Full Exam - General Neurologic mental status Overall: oriented 03/31/2019 None Full Exam - General Neurologic mental status Overall: alert 9 None Full Exam - General Cardiovascular auscultation of heart Overall: no murmurs 03/31/2019 None Full Exam - General Cardiovascular auscultation of heart Overall: normal heart sounds 03/31/2019 None Full Exam - General Cardiovascular auscultation of heart Overall: regular rate 03/31/2019 None Full Exam - General Respiratory auscultation Overall: breath sounds clear bilater ally 03/31/2019 None Full Exam - General Ears/Nose/Throat oral cavity/pharynx/larynx Oropharynx: postnasal drainage 03/31/2019 None Full Exam - General Ears/Nose/Throat internal nose Drainage: clear 03/31/2019 None Full Exam - General Constitutional general appearance Overall: in no acute distress 03/31/2019 None Full Exam - General Constitutional general appearance Overall: well developed 03/31/2019 None Full Exam - General Constitutional general appearance Overall: well nourished 03/31/2019 None Full Exam - General Ears/Nose/Throat otoscopic exam Left external auditory canal: a normal exam 03/31/2019 None Full Exam - General Ears/Nose/Throat otoscopic exam Right external auditory canal: partial cerumen occlusion 03/31/2019 None Full Exam - General Ears/Nose/Throat otoscopic exam Left tympanic membrane: injected 03/31/2019 None Full Exam - General Ears/Nose/Throat otoscopic exam Right tympanic membrane: injected 03/31/2019 None Full Exam - General Constitutional general appearance Overall: well nourished 08/07/2018 None Full Exam - General Constitutional general appearance Overall: well developed 08/07/2018 None Full Exam - General Constitutional general appearance Overall: in no acute distress 08/07/2018 None Full Exam - General Neurologic mental status Overall: alert 9 None Full Exam - General Neurologic mental status Overall: oriented 08/07/2018 None Full Exam - General Psychiatric mood and affect Overall: normal mood and affect 08/07/2018 None Full Exam - General Musculoskeletal right upper extremity Inspection - right wrist: presence of a scar 08/07/2018 None Full Exam - General Musculoskeletal right upper extremity Palpation - right wrist: a normal exam 08/07/2018 None Full Exam - General Musculoskeletal right upper extremity ROM - right wrist: crepitus 08/07/2018 None Full Exam - General Musculoskeletal right upper extremity ROM - right wrist: decreased flexion 08/07/2018 None Full Exam - General Musculoskeletal right upper extremity ROM - right wrist: decreased extension 08/07/2018 None Full Exam - General Constitutional general appearance Overall: well nourished 10/11/2016 None Full Exam - General Constitutional general appearance Overall: well developed 10/11/2016 None Full Exam - General Constitutional general appearance Overall: in no acute distress 10/11/2016 None Full Exam - General Neurologic mental status Overall: alert 7 None Full Exam - General Neurologic mental status Overall: oriented 10/11/2016 None Full Exam - General Psychiatric mood and affect Overall: normal mood and affect 10/11/2016 None Full Exam - General Respiratory auscultation Overall: breath sounds clear bilater ally 10/11/2016 None Full Exam - General Cardiovascular auscultation of heart Overall: regular rate 10/11/2016 None Full Exam - General Cardiovascular auscultation of heart Overall: normal heart sounds 10/11/2016 None Full Exam - General Cardiovascular auscultation of heart Overall: no murmurs 10/11/2016 None Full Exam - General Cardiovascular extremities Overall: no clubbing 10/11/2016 None Full Exam - General Cardiovascular extremities Overall: No edema 10/11/2016 None Full Exam - General Cardiovascular extremities Overall: No cyanosis 10/11/2016 None Full Exam - General Constitutional general appearance Overall: well nourished 09/24/2016 None Full Exam - General Constitutional general appearance Overall: well developed 09/24/2016 None Full Exam - General Constitutional general appearance Overall: in no acute distress 09/24/2016 None Full Exam - General Eyes conjunctiva/eyelids Overall: conjunctiva clear 09/24/2016 None Full Exam - General Eyes conjunctiva/eyelids Overall: eyelids normal 09/24/2016 None Full Exam - General Ears/Nose/Throat external ear Overall: normal appearance 09/24/2016 None Full Exam - General Ears/Nose/Throat external nose Overall: benign appearance 09/24/2016 None Full Exam - General Ears/Nose/Throat otoscopic exam Overall: external auditory canals clear 09/24/2016 None Full Exam - General Ears/Nose/Throat otoscopic exam Overall: tympanic membranes clear 09/24/2016 None Full Exam - General Ears/Nose/Throat internal nose Overall: bilateral nasal cavities clear 09/24/2016 None Full Exam - General Ears/Nose/Throat internal nose Overall: no drainage 09/24/2016 None Full Exam - General Ears/Nose/Throat lips/teeth/gingiva Overall: benign lips 09/24/2016 None Full Exam - General Ears/Nose/Throat oral cavity/pharynx/larynx Overall: oral mucosa clear 09/24/2016 None Full Exam - General Ears/Nose/Throat oral cavity/pharynx/larynx Left tonsil: 3+ size 09/24/2016 None Full Exam - General Ears/Nose/Throat oral cavity/pharynx/larynx Left tonsil: erythematous 09/24/2016 None Full Exam - General Ears/Nose/Throat oral cavity/pharynx/larynx Right tonsil: erythematous 09/24/2016 None Full Exam - General Ears/Nose/Throat oral cavity/pharynx/larynx Right tonsil: 3+ size 09/24/2016 None Full Exam - General Ears/Nose/Throat oral cavity/pharynx/larynx Oropharynx: a normal exam 09/24/2016 None Full Exam - General Respiratory auscultation Overall: breath sounds clear bilater ally 09/24/2016 None Full Exam - General Respiratory respiratory effort/rhythm Overall: no retractions 09/24/2016 None Full Exam - General Respiratory respiratory effort/rhythm Overall: normal rate 09/24/2016 None Full Exam - General Cardiovascular auscultation of heart Overall: regular rate 09/24/2016 None Full Exam - General Cardiovascular auscultation of heart Overall: normal heart sounds 09/24/2016 None Full Exam - General Lymphatic neck nodes Overall: anterior cervical chain compa ign 09/24/2016 None Full Exam - General Lymphatic neck nodes Overall: posterior cervical chain be nign 09/24/2016 None Full Exam - General Integument inspection of skin Overall: no rash, lesions 09/24/2016 None Full Exam - General Neurologic mental status Overall: alert 7 None Full Exam - General Neurologic mental status Overall: oriented 09/24/2016 None Full Exam - General Constitutional general appearance Overall: well nourished 05/31/2016 None Full Exam - General Constitutional general appearance Overall: well developed 05/31/2016 None Full Exam - General Constitutional general appearance Overall: in no acute distress 05/31/2016 None Full Exam - General Neurologic mental status Overall: alert 6 None Full Exam - General Neurologic mental status Overall: oriented 05/31/2016 None Full Exam - General Psychiatric mood and affect Overall: normal mood and affect 05/31/2016 None Full Exam - General Musculoskeletal left lower extremity Inspection - left foot: redness 05/31/2016 to great toe laterally with some scaling--no oozing Full Exam - General Constitutional general appearance Overall: well nourished 04/26/2016 None Full Exam - General Constitutional general appearance Overall: well developed 04/26/2016 None Full Exam - General Constitutional general appearance Overall: in no acute distress 04/26/2016 None Full Exam - General Neurologic mental status Overall: alert 6 None Full Exam - General Neurologic mental status Overall: oriented 04/26/2016 None Full Exam - General Psychiatric mood and affect Overall: normal mood and affect 04/26/2016 None Full Exam - General Respiratory auscultation Overall: breath sounds clear bilater ally 04/26/2016 None Full Exam - General Cardiovascular auscultation of heart Overall: regular rate 04/26/2016 None Full Exam - General Cardiovascular auscultation of heart Overall: normal heart sounds 04/26/2016 None Full Exam - General Cardiovascular auscultation of heart S3 (ventricular gallop): present 04/26/2016 None Full Exam - General Constitutional general appearance Nourishment: obese 03/07/2016 None Full Exam - General Constitutional general appearance Overall: well developed 03/07/2016 None Full Exam - General Constitutional general appearance Overall: in no acute distress 03/07/2016 None Full Exam - General Eyes conjunctiva/eyelids Overall: conjunctiva clear 03/07/2016 None Full Exam - General Ears/Nose/Throat external ear Overall: normal appearance 03/07/2016 None Full Exam - General Ears/Nose/Throat external nose Overall: benign appearance 03/07/2016 None Full Exam - General Ears/Nose/Throat lips/teeth/gingiva Overall: benign lips 03/07/2016 None Full Exam - General Ears/Nose/Throat oral cavity/pharynx/larynx Overall: oral mucosa clear 03/07/2016 None Full Exam - General Ears/Nose/Throat oral cavity/pharynx/larynx Overall: oropharyngeal mucosa clear 03/07/2016 None Full Exam - General Neck thyroid Overall: normal size 10/2015 None Full Exam - General Neck thyroid Overall: nontender 03/07 None Full Exam - General Respiratory auscultation Overall: breath sounds clear bilater ally 03/07/2016 None Full Exam - General Respiratory respiratory effort/rhythm Overall: no retractions 03/07/2016 None Full Exam - General Respiratory respiratory effort/rhythm Overall: normal rate 03/07/2016 None Full Exam - General Cardiovascular auscultation of heart Overall: regular rate 03/07/2016 None Full Exam - General Cardiovascular auscultation of heart Overall: normal heart sounds 03/07/2016 None Full Exam - General Abdomen abdominal exam Overall: no tenderness 03/07/2016 None Full Exam - General Abdomen abdominal exam Overall: soft 03/07/2016 None Full Exam - General Abdomen abdominal exam Overall: no masses 03/07/2016 None Full Exam - General Abdomen abdominal exam Overall: normal bowel sounds 03/07/2016 None Full Exam - General Lymphatic neck nodes Overall: anterior cervical chain compa ign 03/07/2016 None Full Exam - General Lymphatic neck nodes Overall: posterior cervical chain be nign 03/07/2016 None Full Exam - General Integument inspection of skin Overall: no rash, lesions 03/07/2016 None Full Exam - General Neurologic mental status Overall: alert 6 None Full Exam - General Neurologic mental status Overall: oriented 03/07/2016 None Procedures Procedure Codes Date STREP A ASSAY W/OPTIC CPT-4: 67139 09/24/2016 ROUTINE VENIPUNCTURE CPT-4: 72398 04/10/2016 ASSAY OF FREE THYROXINE CPT-4: 10295 04/10/2016 ASSAY THYROID STIM H ORMONE CPT-4: 97152 04/10/2016 COMPREHEN METABOLIC PANEL CPT-4: 17683 04/10/2016 COMPLETE CBC W/AUTO DIFF WBC CPT-4: 92639 04/10/2016 LIPID PANEL CPT-4: 27648 04/10/2016 TDAP VACCINE 7 YRS/> IM CPT-4: 27032 03/07/2016 IMMUNIZATION ADMIN CPT- 4: 74768 03/07/2016 Vital Signs Date Vital 03/31/2019 Blood Pressure 1: 124/86 Code: 8480-6 Heart Rate 1: 72 bpm Respiratory Rate: 20 bpm SpO2: 97% Temperature: 36.8 (C ) / 98.2 (F) Weight: 270 lbs 08/20/2018 Blood Pressure 1: 128/86 Code: 8480-6 Heart Rate 1: 68 bpm Height: 6' Respiratory Rate: 20 bpm SpO2: 98% Temperature: 36.9 (C ) / 98.4 (F) 08/07/2018 Blood Pressure 1: 126/82 Code: 8480-6 BMI: 36.2 Code: 36694-8 Heart Rate 1: 72 bpm Height: 6' Respiratory Rate: 20 bpm Temperature: 36.7 (C ) / 98.0 (F) Weight: 267 lbs 10/11/2016 Blood Pressure 1: 116/78 Code: 8480-6 Heart Rate 1: 72 bpm Respiratory Rate: 20 bpm Temperature: 36.7 (C) / 98.1 (F) Weight: 244 lbs 09/24/2016 Blood Pressure 1: 124/78 Code: 8480-6 BMI: 33.9 Code: 32948-9 Heart Rate 1: 84 bpm Height: 6' Respiratory Rate: 18 bpm SpO2: 96% Temperature: 36.4 (C ) / 97.6 (F) Weight: 250 lbs 05/31/2016 Blood Pressure 1: 126/82 Code: 8480-6 BMI: 37.7 Code: 52481-7 Heart Rate 1: 84 bpm Height: 5'12" Respiratory Rate: 20 bpm Temperature: 36.8 (C ) / 98.2 (F) Weight: 274 lbs 04/26/2016 Blood Pressure 1: 126/82 Code: 8480-6 BMI: 37.7 Code: 12533-0 Heart Rate 1: 68 bpm Height: 5'12" Respiratory Rate: 20 bpm Temperature: 36.6 (C ) / 97.8 (F) Weight: 274 lbs 03/27/2016 Blood Pressure 1: 136/94 Code: 8480-6 Heart Rate 1: 84 bpm 03/07/2016 Blood Pressure 1: 124/100 Code: 8480-6 BMI: 38.2 Code: 21674-4 Heart Rate 1: 84 bpm Height: 5'12" Respiratory Rate: 18 bpm SpO2: 97% Temperature: 35.8 (C ) / 96.5 (F) Weight: 278 lbs Functional Status No Functional Status data History of Present Illness Symptom Name Status Resu lt Effective Date Notes Location on the right 03/31/2019 None Quality acute 03/31/2019 None Quality throbbing 03/31/2019 None Quality dull 03/31/2019 None Location on the right 03/31/2019 None Quality fullness 03/31/2019 None Quality pain 03/31/2019 None Onset of Symptom 1 day s ago 03/31/2019 None Onset of Symptom 2 day s ago 03/31/2019 None Onset and Resolution o ngoing 03/31/2019 None Onset and Resolution s udden in onset 03/31/2019 None Location on the right 08/20/2018 None Quality aching 08/20/2018 None Quality constant 08/20/2018 None Onset and Resolution o ngoing 08/20/2018 Patient is still using al clary 3 twice daily Location on the right 08/07/2018 None Quality aching. 08/07/2018 Patient had surgery in 2009 to that wris t Onset of Symptom 2 mon ths ago 08/07/2018 None hypertension Quality chr onic 10/11/2016 None hypertension Quality zoey giselle hypertension 10/11/2016 None hypertension Quality sta ble 10/11/2016 None hypertension Alleviating Factors medication 10/11/2016 Patient doing well Lisino pril 5mg daily sore throat Location on the right 09/24/2016 None sore throat Quality acute 09/24/2016 None sore throat Quality achi ng 09/24/2016 None sore throat Quality burn ing 09/24/2016 None sore throat Onset and Resolution gradual in onset 09/24/2016 None sore throat Onset of Symptom 5 days ago 09/24/2016 None headache Location diffus barbi 09/24/2016 None headache Quality acute 09/24/2016 None headache Quality aching 09/24/2016 None headache Onset and Resolution gradual in onset 09/24/2016 None headache Onset of Symptom 3-5 days ago 09/24/2016 None ingrown toenail Quality dull pain 05/31/2016 None ingrown toenail Location on the left great toe 05/31/2016 None ingrown toenail Onset of Symptom 2 weeks ago 05/31/2016 None hypertension Quality chr onic 04/26/2016 None hypertension Quality zoey giselle hypertension 04/26/2016 None hypertension Alleviating Factors medication. 04/26/2016 Currently on Lisinopril 5 mg daily well man exam (18-39 years) Sexual Activit y is sexually active 03/07/2016 None well man exam (18-39 years) Sexual Activit y experiences sexual satisfaction 03/07/2016 None well man exam (18-39 years) Sexual Activit y is monogamous 03/07/2016 None well man exam (18-39 years) Control none 03/07/2016 None well man exam (18-39 years) Lifestyle regular seatbelt use 03/07/2016 None well man exam (18-39 years) Lifestyle family supportive of relationship 03/07/2016 None well man exam (18-39 years) Lifestyle satisfactory work experience 03/07/2016 None well man exam (18-39 years) Lifestyle abnormal sleep patterns 03/07/2016 snores well man exam (18-39 years) Lifestyle normal amount of stress 03/07/2016 None well man exam (18-39 years) Nutritio n and Exercise balanced nutrition 03/07/2016 None well man exam (18-39 years) Nutritio n and Exercise regular diet 03/07/2016 None well man exam (18-39 years) Nutritio n and Exercise no exercise 03/07/2016 N one well man exam (18-39 years) Cardiova scular Risk Factors hypertension 03/07/2016 None well man exam (18-39 years) Health Guidanc e control options 03/07/2016 None well man exam (18-39 years) Health Guidanc e tobacco, drugs and alcohol avoidance 03/07/2016 None well man exam (18-39 years) Health Guidanc e regular exercise 03/07/2016 None well man exam (18-39 years) Health Guidanc e safety belt use 03/07/2016 None well man exam (18-39 years) Health Guidanc e limiting UV/sun exposure 03/07/2016 None well man exam (18-39 years) Health Guidanc e cholesterol level and lipid panel 03/07/2016 None well man exam (18-39 years) Immunizations tetanus-diphtheria booster 03/07/2016 updating today well man exam (18-39 years) Nutritio n and Exercise overweight 03/07/2016 re ports he has gained a lot of weight this year during his 's Advance Directives No Advance Directive data Encounters Encounter Performer Loca tion Codes Date (77121) OFFICE/OUTPA TIENT VISIT EST Diagnosis: Unspecified nonsuppurative otitis media, right ear[ICD10: H65.91] Diagnosis: Otitis externa in other diseases classified elsewhere, right ear[ICD10: H62.41] Roxi MEJIA DO [facility] CPT-4: 12633 03/31/2019 ([id number]) OFFICE/OUTPA TIENT VISIT EST Diagnosis: Pain in right wrist[ICD10: M25.531] Roxi CAAL DO [facility] CPT-4: 81389 08/20/2018 ([id number]) OFFICE/OUTPA TIENT VISIT EST Diagnosis: Pain in right wrist[ICD10: M25.531] Roxi CAAL DO [facility] CPT-4: 35487 08/07/2018 ([id number]) OFFICE/OUTPA TIENT VISIT EST Diagnosis: Essential (primary) hypertension[ICD10: I10] Roxi CAAL DO [facility] CPT-4: 50574 10/11/2016 ([id number]) OFFICE/OUTPA TIENT VISIT EST Diagnosis: Acute tonsillitis, unspecified[ICD10: J03.90] Jade Cooper MEJIA DO [facility] CPT-4: 31322 09/24/2016 OFFICE/OUTPATIENT SIT EST Diagnosis: Ingrowing nail[ICD10: L60.0] Roxi MEJIA DO [facility] CPT-4: 71533 05/31/2016 ([id number]) OFFICE/OUTPA TIENT VISIT EST Diagnosis: Essential (primary) hypertension[ICD10: I10] Roxi CAAL DO [facility] CPT-4: 47954 04/26/2016 ([id number]) OFFICE/OUTPA TIENT VISIT EST Diagnosis: Encounter for general adult medical examination with abnormal findings[ICD10: Z00.01] Diagnosis: Elevated blood-pressure reading, without diagnosis of hypertension[ICD10: R03.0] Roix MEJIA DO [facility] CPT-4: 85374 04/10/2016 ([id number]) PREV VISIT N EW AGE 18-39 Diagnosis: Encounter for general adult medical examination with abnormal findings[ICD10: Z00.01] Diagnosis: Encounter for immunization[ICD10: Z23] Diagnosis: Elevated blood-pressure reading, without diagnosis of hypertension[ICD10: R03.0] Diagnosis: Snoring[ICD10: R06.83] Diagnosis: Abnormal weight gain[ICD10: R63.5] Diagnosis: VACCINE FOR TDAP[ICD10: Z23] Jade Cooper MEJIA DO [facility] CPT-4: 78371 03/07/2016 Plan of Care Planned Activity Notes C odes Status Date Visit Plan: Supportive care. Rest, Fluids, Tylenol/Motrin prn fever or bodyaches. Notify if worsening symptoms. 03/31/2019 Visit Diagnosis Plan: Unspecified nonsup purative otitis media, right ear Discussion: Prednisone Flonase ICD-9 : 382.9 ICD-10 : H65.91 03/31/2019 Visit Diagnosis Plan: Otitis externa in other diseases classified elsewhere, right ear Discussion: Cortisporin otic drops ICD-9 : 380.13 ICD-10 : H62.41 03/31/2019 Visit NOS Plan: Plan Notes: Support best care. Rest, Fluids... 03/31/2019 Patient Education: prednisone- [employer] Coupon [phone] https://www.[employer]/resources/getResource/61/7685tr50-97y1-67r8-8i Completed 03/31/2019 Patient Education: [id number] - [employer] Coupon [id number] https://www.[employer]/resources/getResource/61/x5gp53y2-25ha-694u-7q 7d-d28m832aq7r9.pdf Completed 03/31/2019 Visit Diagnosis Plan: Pain in right wrist Discussion: See ortho for updated x-ray/evaluation Prednisone 20mg po BID for 1 week then Celebrex 200mg po BID ICD-9 : 719.43 ICD-10 : M25.531 08/20/2018 Appointment: [facility] Mej[facility] [phone] [id number] [facility] 08/20/2018 Patient Education: prednisone- [employer] Coupon [phone] https://www.[employer]/resources/getResource/61/ic65w469-m2j3-8e4t-lf Completed 08/20/2018 Care Plan: Referral Order SNOMED-CT : [id number] Pending 08/20/2018 Visit Diagnosis Plan: Pain in right wrist Discussion: Wrist brace Aleve BID Call in 2 weeks If pain persists then will return to hand surgeon and will need updated imaging ICD-9 : 719.43 ICD-10 : M25.531 08/07/2018 Appointment: Roxi Mejia WPtel: [address] [place] [address] ACUTE ILLNESS 08/07/2018 Visit Diagnosis Plan: Essential (primary) hypertension Discussion: Stop lisinopril Continue lifestyle change BP and Pulse check in 1month ICD-9 : 401.9 ICD-10 : I10 10/11/2016 Appointment: Roxi Mejia WPtel: [address] [place] [address] 10/10 confirmed`sl FOLLOW UP 10/11/2016 Patient Education: Patient Medication Summary Completed 10/11/2016 Visit Diagnosis Plan: Acute tonsillitis, unspecified Discussion: Rapid strep negative Discussed throat culture if symptoms persist or worsen - can call and get culture orders if needed Supportive care for now ICD-9 : 463 ICD-10 : J03.90 09/24/2016 Appointment: Jade Gamboa [address] [place] [address] ACUTE ILLNESS 09/24/2016 Patient Education: Patient Medication Summary Completed 09/24/2016 Visit Plan: Continue epsom salt soa ks Add Keflex Pull edge of nailbed up as grows out If persists will need partial toenail removal 05/31/2016 Appointment: Roxi Mejia WPtel: [address] [place], [place] [phone] 05/30 lm ~sl ACUTE ILLNESS 05/31/2016 Patient Education: Patient Medication Summary Completed 05/31/2016 Visit Plan: Lab from first of month discussed Continue lisinopril at 5mg daily 04/26/2016 Appointment: Roxi Mejia WPtel: [address] [place] [address] [phone] confirmed-sp FOLLOW UP 04/26/2016 Patient Education: Patient Medication Summary Completed 04/26/2016 Patient Education: [facility] - Saving [employer] - Lisinopril - 18-64 - Dynamic Portal ID Completed 04/26/2016 Appointment: Roxi Mejia [facility]Ptel[facility] [phone] [id number] [facility] 04/10/2016 Patient Education: Patient Medication Summary Completed 04/10/2016 Appointment: Roxi Mejia [facility]Ptel[facility] [phone] [facility] [facility] BP CHECK 03/27/2016 Patient Education: Patient Medication Summary Completed 03/27/2016 Visit Plan: Tdap given Rechecked BP and still high 134/104 Has a cuff at home - keep daily log x 2 weeks, return for nurse BP visit with home cuff to correlate as well May need to start anti-hypertensive while he s tarts working on his diet, weight and exercise He is likely going to need a sleep study as well - snores, weight gain this year, fatigue, obesity and now elevated BP He will come fasting for his BP recheck with the nurse so we can update routine fasting labs - cbc, cmp, lipids, tsh, free t4 03/07/2016 Visit Plan: Tdap given Rechecked BP and still high 134/104 Has a cuff at home - keep daily log x 2 weeks, return for nurse BP visit with home cuff to correlate as well May need to start anti-hypertensive while he s tarts working on his diet, weight and exercise He is likely going to need a sleep study as well - snores, weight gain this year, fatigue, obesity and now elevated BP He will come fasting for his BP recheck with the nurse so we can update routine fasting labs - cbc, cmp, lipids, tsh, free t4 03/07/2016 Visit Plan: Tdap given Rechecked BP and still high 134/104 Has a cuff at home - keep daily log x 2 weeks, return for nurse BP visit with home cuff to correlate as well May need to start anti-hypertensive while he s tarts working on his diet, weight and exercise He is likely going to need a sleep study as well - snores, weight gain this year, fatigue, obesity and now elevated BP He will come fasting for his BP recheck with the nurse so we can update routine fasting labs - cbc, cmp, lipids, tsh, free t4 03/07/2016 [phone] [id number] NEW PATIENT 03/07/2016 Patient Education: Patient Medication Summary Completed 03/07/2016 Referral: Kimani Medina WPtel: [facility] [address], [facility] [id number] Referral Initiated Referral: Kimani Medina WPtel: [facility] [address], [facility] 1 [id number] Referral Appointment Requested Instructions Comment . Lab from first of month discussed [...] - cbc, cmp, lipids, tsh, free t4 . Tdap given Rechecked BP and still [...] - cbc, cmp, lipids, tsh, free t4 . Tdap given Rechecked BP and still [...] - cbc, cmp, lipids, tsh, free t4 . Supportive care. Rest, Fluids, Tylenol/Motrin prn fever or bodyaches. Notify if worsening symptoms. . Continue epsom gabino t soaks Add Keflex Pull edge of nailbed up as grows out If persists will need partial toenail removal
[2020-03-03] MEDS ORDERED: LACTATED RINGERS 1,000 ML IV PRN (06:34)
[2020-03-03] MEDS ORDERED: LIDOCAINE PF 2% 5 ML (XYLOCAINE) VIAL ONE (07:27)
[2020-03-03] MEDS ORDERED: SEVOFLURANE (ULTANE) 15 ML INHAL SOLN ONE ×2 (07:27→08:13)
[2020-03-03] MEDS ORDERED: MIDAZOLAM 2 MG/2 ML (VERSED) VIAL ONE (07:27)
[2020-03-03] MEDS ORDERED: fentaNYL INJECTION 100 MCG/2 ML AMP ONE ×2 (07:27→08:11)
[2020-03-03] MEDS ORDERED: ONDANSETRON 4 MG/2 ML (SDV) Z0FRAN ONE (07:27)
[2020-03-03] MEDS ORDERED: proPOfol 200 MG/20 ML (DIPRIVAN) VIAL IV ONE (07:27)
[2020-03-03 07:39] LABS: BASOPHILS % (AUTO) 0 % (0-10); EOSINOPHILS # (AUTO) 0.4 10^3/uL (0.0-0.3); EOSINOPHILS % (AUTO) 6 % (0-10); HEMATOCRIT 42 % (40-54); HEMOGLOBIN 14.2 G/DL (13.3-17.7); LYMPHOCYTES # (AUTO) 1.5 X 10^3 (1.0-4.0); LYMPHOCYTES % (AUTO) 24 % (12-44); MEAN CORPUSCULAR HEMOGLOBIN 30 PG (25-34); MEAN CORPUSCULAR HGB CONC 34 G/DL (32-36); MEAN CORPUSCULAR VOLUME 88 FL (80-99); MEAN PLATELET VOLUME 10.7 FL (7.4-10.4); MONOCYTES # (AUTO) 0.6 X 10^3 (0.0-1.0); MONOCYTES % (AUTO) 10 % (0-12); NEUTROPHILS # (AUTO) 3.8 X 10^3 (1.8-7.8); NEUTROPHILS % (AUTO) 61 % (42-75); PLATELET COUNT 269 10^3/uL (130-400); RED CELL DISTRIBUTION WIDTH 13.4 % (10.0-14.5); WHITE BLOOD COUNT 6.3 10^3/uL (4.3-11.0)
--- NOTE | 2020-03-03 08:03 | Progress Note-Pre Operative ---
Pre-Operative Progress Note H&P Reviewed The H&P was reviewed, patient examined and no changes noted. Date Seen by Provider: Mar 03, 2020 Time Seen by Provider: 08:00 Date H&P Reviewed: Mar 03, 2020 Time H&P Reviewed: 08:00 Pre-Operative Diagnosis: Right SERA. Naropharyngeal Mass VICKY GARDINER MD Mar 03, 2020 08:03
[2020-03-03] MEDS ORDERED: ROCURONIUM 10 MG/ML 5 ML SYRINGE IV ONE (08:13)
[2020-03-03] MEDS ORDERED: NS IV 1000 ML 1,000 ML IV SCH (08:48)
--- NOTE | 2020-03-03 08:48 | Progress Note-Post Operative ---
Post-Operative Progess Note Surgeon (s)/Telemarketer (s) Surgeon VICKY GARDINER MD Telemarketer n/a Pre-Operative Diagnosis Right SERA. Naropharyngeal Mass Post-Operative Diagnosis same Post-Op Procedure Note Date of Procedure: Mar 03, 2020 Name of Procedure Performed: Right Myringotomy with Tube, Removal of nasopharyngeal Mass Description & Findings Description and Findings: n/a Anesthesia Type get Estimated Blood Loss minimal Packing none. Specimen(s) collected/removed nasophryngeal mass VICKY GARDINER MD Mar 03, 2020 08:48
[2020-03-03] MEDS ORDERED: APAP 325 MG/10.15 ML LIQ (TYLENOL) UDC PO PRN (09:00)
[2020-03-03] MEDS ORDERED: HYDROcodone/APAP 5 MG/325 MG (LORTAB) TAB PO PRN (09:00)
[2020-03-03] MEDS ORDERED: ONDANSETRON 4 MG/2 ML (SDV) Z0FRAN IVP PRN (09:00)
[2020-03-03] MEDS ORDERED: HYDROmorphone 2 MG/ML VIAL (DILAUDID) IV ONE (09:00)
[2020-03-03] MEDS ORDERED: GENT5DRO30 RIGHT EAR (10:37)
[2020-03-03] MEDS ORDERED: HYDR-3812 PO (10:37)
--- NOTE | 2020-03-03 12:58 | Anesthesia-General Post-Op ---
General Patient Condition Mental Status/LOC: Same as Preop Cardiovascular: Satisfactory Nausea/Vomiting: Absent Respiratory: Satisfactory Pain: Controlled Complications: Absent Post Op Complications Complications None Follow Up Care/Instructions Patient Instructions None needed. Anesthesia/Patient Condition Patient Condition Patient is doing well, no complaints, stable vital signs, no apparent adverse anesthesia problems. No complications reported per nursing. [place] [facility] [place]: Yes SATHYA GARCIAS CRNA Mar 03, 2020 12:58
== END 2020-03-03 11:15 | disposition home or self-care (01) ==
LOC: SDC 06:27
PROVIDERS: ATTEND Otolaryngology Otolaryngology/Facial Plastic Surgery
DX: J34.89 Other specified disorders of nose and nasal sinuses (principal); H65.21 Chronic serous otitis media, right ear; H92.11 Otorrhea, right ear; H61.22 Impacted cerumen, left ear; H69.91 Unspecified Eustachian tube disorder, right ear; Z82.49 Family history of ischemic heart disease and other diseases of the circulatory system
CPT/HCPCS: 36415; 85025; 87081; 88305